=== PATIENT | female | born 1955 | race Caucasian/White ===

== ENCOUNTER 2024-12-12 15:12 | Emergency (ER) | payer OTHER ==
--- OUTSIDE RECORDS SUMMARY | 2024-12-12 15:22 | XMS REPORT | Continuity of Care Document ---
Author Name Unknown Address [address] [facility] [address] [place] [address] [facility] thconnect Address [address] [facility] [address] [place] [address] Care Team Providers Care Lasting Floorworker Name Role Phone Denise Upton MD Primary Care Physician + CAROLA LYNCH Attending Clinician Kate daniels Doctor Unassigned, [place] Attending Clinician U Esthela Villatoro RN Attending Clinician Unavail able RADIOLOGY Attending Clinician Unavailable Radiology Attending Clinician Unavailable Matt Cordova MD Attending Clinician [phone] MATT CORDOVA Attending Clinician Kiarra dorsey Testing, [facility] Pulmonary Function Attending Clinic kandi Unavailable Doctor Unassigned, [place] Attending Clinician U Matt Hi MD Attending Clinician [phone] [facility] Lab Main Attending Clinician Carola David MD Attending Clinician [phone] CAROLA ESQUEDA Attending Clinician Denise Stone MD Attending Clinician [phone] DENISE UPTON Attending Clinician Unavail CARLOS A Anna Attending Clinician CARLOS A Boateng Attending Clinician Renata Warren MD Attending Clinician [phone] Vaccine, [facility] Attending Clinician Unavailable RENATA MANCINI Attending Clinician Kiarra Connelly [facility] Attending Clinician [phone] CHIP MELENDEZ Attending Clinician Unavail able CHIP MELENDEZ Attending Clinician Unavail able Chip Melendez MD Attending Clinician [phone] Lab, Ang - Db Attending Clinician Unavailable Sumit Sotomayor PA-C Attending Clinician [phone] SUMIT SOTOMAYOR Attending Clinician Unavailable Galo KWON, Eugenia Medel Attending Clinician Unavailab le Only, [facility] Pob2 Test Attending Clinician Unavaila Nasir Colbert DO Attending Clinician [phone] NASIR SANTOS Attending Clinician Unavail able JOSHUA MUÑOZ Attending Clinician Unavailabl e Therapist, [facility] Respiratory Attending Clinician U eli Diaz MD, Enmanuel Ardon Attending Clinician [phone] ENMANUEL DIAZ Attending Clinician Unavaila shantel Nurse, [facility] Pob Immunization Attending Clinician Unavailable Joshua Coronel Attending Clinician [phone] Tracey Figueroa MD Attending Clinician [phone], [facility] Lab Attending Clinician Unavailable JORDY MARQUEZ Attending Clinician Unavailable Provider, [facility] Attending Clinician Un available Haleigh Perkins Attending Clinician [phone] Jp Latif MD Attending Clinician Unavailable Carola Lynch MD Attending Clinician + [phone] Only, [facility] Test Attending Clinician Unavailable Sergio Bhagat MD Attending Clinician [phone] SERGIO BHAGAT Attending Clinician Unavailab David Corona MD Attending Clinician [phone] TRACEY FIGUEROA Attending Clinician Unavailable Phil Gan MD Attending Clinician [phone] CAROLA LYNCH Admitting Clinician RENATA Arango Admitting Clinician MATT Albrecht Admitting Clinician Carola Barrera MD Admitting Clinician + [phone] Payers Payer Name Policy Type Policy Number Effective Date Expirati on Date Source MEDICARE PART A \T\ B [id number] 2018 00:00:00 [place] [id number] 2018 00:00:00 Problems Condition Name Condition Details Condition Category Status Onset Date Resolution Date Last Treatment Date Treating Clinician Comments Source Dyslipidem ia Dyslipidem ia Disease Active 01-02 00:00: 00 [facility] Zinc deficiency Zinc deficiency Disease Active 01-02 00:00: 00 [facility] Essential tremor Essential tremor Disease Active 01-02 00:00: 00 [facility] Tachycardi a Tachycardi a Disease Active 12-20 00:00: 00 [facility] Psoriasis Psoriasis Disease Active 12-20 00:00: 00 [facility] Senile osteoporos is Senile osteoporos is Disease Active 12-20 00:00: 00 [facility] Former smoker Former smoker Disease Active 12-20 00:00: 00 [facility] Essential hypertensi on Essential hypertensi on Disease Active 01-07 00:00: 00 [facility] Generalize d anxiety disorder Generalize d anxiety disorder Disease Active 01-07 00:00: 00 [facility] Epigastric pain Epigastric pain Disease Active 01-07 00:00: 00 [facility] Insomnia Insomnia Disease Active 01-07 00:00: 00 [facility] Anorexia Anorexia Disease Active 01-07 00:00: 00 [facility] Chronic midline low back pain with sciatica, sciatica laterality unspecifie d Chronic midline low back pain with sciatica, sciatica laterality unspecifie d Disease Active 01-07 00:00: 00 [facility] Compressio n fracture of lumbar spine, non-trauma tic, sequela Compressio n fracture of lumbar spine, non-trauma tic, sequela Disease Active 01-07 00:00: 00 [facility] Vitamin D deficiency Vitamin D deficiency Disease Active 01-07 00:00: 00 [facility] Peripheral neuropathy Peripheral neuropathy Disease Active 01-07 00:00: 00 [facility] Vitamin deficiency Vitamin deficiency Disease Active 01-07 00:00: 00 [facility] Hyperlipid emia Hyperlipid emia Disease Active 01-07 00:00: 00 [facility] Alcoholism Alcoholism Disease Active 01-07 00:00: 00 [facility] Hypomagnes emia Hypomagnes emia Disease Active 01-07 00:00: 00 [facility] Anemia Anemia Disease Active 11-21 00:00: 00 Overview: Formattin g of this note might be different from the original. 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 Disease Active 8 00:00: 00 [facility] Lung mass Lung mass Disease Active 04-17 00:00: 00 [facility] Medicare annual wellness visit, subsequent Medicare annual wellness visit, subsequent Disease Resolve d 3 00:00: 00 2020-08-22 00:00:00 2020-08-22 17:29:39 [facility] KENNY (acute kidney injury) KENNY (acute kidney injury) Disease Resolve d 2015-10 0-04 00:00: 00 2020-08-22 00:00:00 2020-08-22 17:29:24 [facility] Altered mental state Altered mental state Disease Resolve d 2015-10 0-03 00:00: 00 2020-08-22 00:00:00 2020-08-22 17:29:26 [facility] Acute renal failure Acute renal failure Disease Resolve d 930 00:00: 00 2020-08-22 00:00:00 2020-08-22 17:29:22 [facility] Emesis Emesis Disease Resolve d 715 00:00: 00 2020-08-22 00:00:00 2020-08-22 17:29:32 [facility] Altered mental status Altered mental status Disease Resolve d 7 00:00: 00 2020-08-22 00:00:00 2020-08-22 17:29:27 [facility] Allergies, Adverse Reactions, Alerts Allergy Name Allergy Type Status Severity Reaction(s) Onset Date Inactive Date Treating Clinician Comments Source Zoledron ic Acid-Man nitol-Wa ter Propensi ty to adverse reaction s Active Other - See comments 04-07 00:00: 00 KENNY [facility] ZOLEDRON IC ACID-MAN NITOL-WA TER DRUG Active Other-Cmnt 04-07 00:00: 00 [facility] Dye Propensi ty to adverse reaction s to drug Active Itching 06-24 00:00: 00 MRI dye [facility] Atorvast atin Calcium Propensi ty to adverse reaction s to drug Active Swelling 06-24 00:00: 00 Made mouth blister [facility] ATORVAST ATIN CALCIUM DRUG INGREDI Active High Swelling 06-24 00:00: 00 [facility] DYE DRUG INGREDI Active Med ITCHING 06-24 00:00: 00 [facility] Social History Social Habit Start Date Stop Date Quantity Comments Source History SDOH Alcohol Frequency [facility] History SDOH Alcohol Std Drinks [facility] History SDOH Alcohol Binge [facility] Gender identity [facility] Sexual orientation U [facility] History of Social function 2024-07-06 00:00:00 2024-07-06 00:00:00 [facility] Alcohol intake 2023-07-15 00:00:00 2023-07-15 00:00:00 Current drinker of alcohol (finding) [facility] Alcoholic beverage intake 2023-07-15 00:00:00 2023-07-15 00:00:00 Current drinker of alcohol (finding) [facility] Exposure to SARS-CoV-2 (event) 2022-10-26 00:00:00 2022-11-05 13:10:00 Not sure [facility] Cigarettes smoked current (pack per day) - Reported 2022-07-16 00:00:00 2022-07-16 00:00:00 [facility] Cigarette pack-years 2022-07-16 00:00:00 2022-07-16 00:00:00 [facility] Tobacco use and exposure 2022-07-16 00:00:00 2022-07-16 00:00:00 Smokeless tobacco non-user [facility] Alcohol Comment 2015-06-26 00:00:00 2015-06-26 00:00:00 used to drink daily,has reduced drinking since 03/2014 [facility] History of tobacco use 1969-04-17 00:00:00 2014-04-17 00:00:00 Cigarette Smoker [facility] Sex assigned at 1955 00:00:00 1955 00:00:00 [facility] Smoking Status Start Date Stop Date Source Ex-smoker 2022-07-16 00:00:00 2022-07-16 00:00:00 [facility] Medications Ordered Medication Name Filled Medication Name Start Date Stop Date Current Medication? Ordering Clinician Indication Dosage Frequency Signature (SIG) Comments Components Source doris m-piotrantero L (ANORO ELLIPTA) 62.5-25 mcg/actuati on inhalation disk 18 00:00: 00 Yes [id number] INHALE 1 PUFF BY MOUTH EVERY DAY [facility] albuterol 90 mcg/actuati on inhaler 18 00:00: 00 Yes [id number] 2{puff} Inhale 2 Puffs every 6 (six) hours as needed for Wheezing, Shortness of Breath or Chest tightness. [facility] doris m-piotrantero L (ANORO ELLIPTA) 62.5-25 mcg/actuati on inhalation disk -16 00:00: 00 07-06 00:00 :00 No [id number] INHALE 1 PUFF BY MOUTH EVERY DAY [facility] fluticasone propionate 50 mcg/actuati on nasal spray 7-05 00:00: 00 Yes [id number] USE 2 SPRAYS IN EACH NOSTRIL 2 TIMES DAILY. [facility] doris mendiolaleonorao L (ANORO ELLIPTA) 62.5-25 mcg/actuati on inhalation disk 07-15 00:00: 00 07-04 00:00 :00 No [id number] INHALE 1 PUFF BY MOUTH EVERY DAY [facility] umviv m-piotrantero L (ANORO ELLIPTA) 62.5-25 mcg/actuati on inhalation disk 07-07 00:00: 00 07-15 00:00 :00 No [id number] INHALE 1 PUFF BY MOUTH EVERY DAY [facility] fluticasone propionate 50 mcg/actuati on nasal spray 05-18 00:00: 00 04-22 00:00 :00 No [id number] USE 2 SPRAYS IN EACH NOSTRIL 2 TIMES DAILY. [facility] PREGABALIN 75 mg capsule 04-29 00:00: 00 Yes [id number] TAKE 1 CAPSULE BY MOUTH IN THE MORNING AND IN THE EVENING [facility] ANORO ELLIPTA 62.5-25 mcg/actuati on inhalation disk 02-16 00:00: 00 07-07 00:00 :00 No [id number] INHALE 1 PUFF BY MOUTH EVERY DAY [facility] CLOBETASOL 0.05 % external solution 2-15 00:00: 00 Yes [id number] APPLY TO AFFECTED AREA TWICE A DAY [facility] ibuprofen 200 mg tablet 18 13:13: 14 Yes 200mg Take 200 mg by mouth every 6 (six) hours as needed. [facility] metaxalone 800 mg tablet 18 00:00: 00 Yes [id number] TAKE ONE TABLET BY MOUTH EVERY NIGHT AT BEDTIME NEEDED FOR MUSCLE SPASMS [facility] eszopiclone 3 mg tablet 18 00:00: 00 Yes [id number] TAKE ONE TABLET BY MOUTH EVERY NIGHT AT BEDTIME FOR INSOMNIA [facility] amLODIPine- benazepriL 5-10 mg per capsule 18 00:00: 00 Yes [id number] 2{capsu le} Take 2 capsules by mouth in the morning. [facility] propranoloL 20 mg tablet 11-05 00:00: 00 Yes [id number] 20mg Take 1 tablet by mouth in the morning and 1 tablet at noon and 1 tablet in the evening. [facility] pregabalin 75 mg capsule 11-05 00:00: 00 04-29 00:00 :00 No [id number] 75mg Take 1 capsule by mouth in the morning and 1 capsule in the evening. [facility] clobetasoL 0.05 % external solution 11-05 00:00: 00 12-03 00:00 :00 No [id number] Apply to area(s) 2 (two) times daily. [facility] fluticasone propionate 50 mcg/actuati on nasal spray 2021-10 00:00: 00 11-05 00:00 :00 No [id number] 2{spray } Use 2 Sprays in each nostril in the morning and 2 Sprays in the evening. [facility] ketoconazol e 2 % shampoo 2021-10 0-30 00:00: 00 Yes WASH 3-4 TIMES WEEKLY. LEAVE IN FOR 5-10 MINUTES BEFORE RINSING. [facility] metaxalone 800 mg tablet 2021-10 0-27 00:00: 00 11-05 00:00 :00 No [id number] TAKE ONE TABLET BY MOUTH EVERY NIGHT AT BEDTIME NEEDED FOR MUSCLE SPASMS [facility] clifflialexis dobson-suma L (ANORO ELLIPTA) 62.5-25 mcg/actuati on inhalation disk 2021-10 0-06 00:00: 00 02-16 00:00 :00 No [id number] INHALE 1 PUFF BY MOUTH EVERY DAY [facility] eszopiclone 3 mg tablet 9-29 00:00: 00 11-05 00:00 :00 No [id number] TAKE ONE TABLET BY MOUTH EVERY NIGHT AT BEDTIME FOR INSOMNIA [facility] fluticasone propionate 50 mcg/actuati on nasal spray 07-17 00:00: 00 09-02 00:00 :00 No [id number] USE 2 SPRAYS IN EACH NOSTRIL 2 TIMES DAILY. [facility] fluticasone propionate 50 mcg/actuati on nasal spray 16 00:00: 00 07-17 00:00 :00 No [id number] USE 2 SPRAYS IN EACH NOSTRIL 2 TIMES DAILY. [facility] umeclijaelynu bronson-piotrsophiao L (ANORO ELLIPTA) 62.5-25 mcg/actuati on inhalation disk 06-26 00:00: 00 07-24 00:00 :00 No [id number] TAKE 1 PUFF BY MOUTH EVERY DAY [facility] fluticasone propionate 50 mcg/actuati on nasal spray 05-14 00:00: 00 07-04 00:00 :00 No [id number] USE 2 SPRAYS IN EACH NOSTRIL 2 TIMES DAILY. [facility] ibuprofen (IBUPROFEN IB) 200 mg tablet 04-07 16:56: 06 Yes 200mg Take 200 mg by mouth every 6 (six) hours as needed. [facility] amLODIPine- benazepriL 5-10 mg per capsule 04-07 00:00: 00 11-05 00:00 :00 No [id number] 2{capsu le} Take 2 capsules by mouth daily. [facility] betamethaso ne dipropionat e 0.05 % cream 03-04 00:00: 00 Yes [id number] APPLY TO AFFECTED AREA 1 TO 2 TIMES DAILY NEEDED FOR ALLERGIC REACTION/R HARSHAD [facility] cetirizine 10 mg tablet 03-04 00:00: 00 Yes [id number] 10mg Take 1 tablet by mouth daily. [facility] lidocaine 5 % (700 mg/patch) patch 03-04 00:00: 00 Yes [id number] APPLY 2 PATCHES TO AFFECTED AREA FOR 12 HOURS THEN REMOVE FOR 12 HOURS [facility] FLUTICASONE PROPIONATE 50 mcg/actuati on nasal spray 03-04 00:00: 00 05-14 00:00 :00 No [id number] USE 2 SPRAYS IN EACH NOSTRIL 2 TIMES DAILY. [facility] eszopiclone 3 mg tablet 01-14 00:00: 00 07-17 00:00 :00 No [id number] TAKE ONE TABLET BY MOUTH EVERY NIGHT AT BEDTIME NEEDED FOR INSOMNIA [facility] PROPRANOLOL 20 mg tablet - 00:00: 00 11-05 00:00 :00 No [id number] TAKE 1 TABLET BY MOUTH THREE TIMES A DAY [facility] umeclijaelynu bronson-leonorao L (ANORO ELLIPTA) 62.5-25 mcg/actuati on inhalation disk 07-17 00:00: 00 06-26 00:00 :00 No [id number] 1{puff} Inhale 1 Puff daily. [facility] 07-05 00:00: 00 Yes [id number] Antipyrine -benzocain e 5.4%-1.4% otic drops. Dispense 30ml at a time with 11 refills. [facility] 07-05 00:00: 00 Yes [id number] Antipyrine -benzocain e 5.4%-1.4% otic drops. Dispense 30ml at a time with 11 refills. [facility] pregabalin 75 mg capsule 07-05 00:00: 00 11-05 00:00 :00 No [id number] 75mg Take 1 capsule by mouth 2 (two) times daily. [facility] metaxalone 800 mg tablet 07-05 00:00: 00 08-14 00:00 :00 No [id number] TAKE ONE TABLET BY MOUTH AT BEDTIME NEEDED FOR MUSCLE SPASMS [facility] amLODIPine- benazepriL 5-10 mg per capsule 07-05 00:00: 00 04-07 00:00 :00 No [id number] 2{capsu le} Take 2 capsules by mouth daily. [facility] ALBUTEROL 90 mcg/actuati on inhaler 05-08 00:00: 00 07-06 00:00 :00 No [id number] 2{puff} INHALE 2 PUFFS EVERY 6 (SIX) HOURS NEEDED FOR WHEEZING, SHORTNESS OF BREATH OR CHEST TIGHTNESS. [facility] meclizine 25 mg tablet 05-21 00:00: 00 Yes 25mg Take 1 tablet by mouth 3 (three) times daily as needed (as needed for dizziness) . [facility] clobetasoL 0.05 % external solution 03-29 00:00: 00 11-05 00:00 :00 No [id number] Apply to area(s) 2 (two) times daily. [facility] megestrol 400 mg/10 mL (40 mg/mL) suspension 2017-10 00:00: 00 04-07 00:00 :00 No [id number] TAKE BY MOUTH 2 TEASPOONFU LS DAILY [facility] pantoprazol e (PROTONIX) 40 mg EC tablet 2014-10 00:00: 00 11-18 00:00 :00 No [id number] 40mg Take 1 Tab by mouth daily. [facility] megestrol (MEGACE) 400 mg/10 mL (40 mg/mL) suspension 2014-10 00:00: 00 01-06 00:00 :00 No [id number] 400mg Take 10 mL by mouth daily. [facility] eszopiclone (LUNESTA) 2 mg tablet 2014-10 00:00: 00 09-05 00:00 :00 No [id number] 2mg Take 1 Tab by mouth at bedtime. [facility] amlodipine- benazepril (LOTREL) 5-10 mg per capsule 2014-10 00:00: 00 01-06 00:00 :00 No [id number] 1{capsu le} Take 1 Cap by mouth daily. [facility] lidocaine (LIDODERM) 5 % (700 mg/patch) patch 2014-10 0 00:00: 00 01-06 00:00 :00 No [id number] 1{patch } Apply 1 Patch to area(s) daily. [facility] propranolol (INDERAL) 20 mg tablet 2014-10 00:00: 00 01-06 00:00 :00 No [facility] proMETHazin e (PHENERGAN) 12.5 mg tablet 2014-10 00:00: 00 03-05 00:00 :00 No 12.5mg Take 1 Tab by mouth every 8 (eight) hours as needed for Nausea and Vomiting (N/V). [facility] ergocalcife rol, vitamin d2, (VITAMIN D2) 50,000 unit capsule 06-26 00:00: 00 01-06 00:00 :00 No [id number] 16505H Take 1 Cap by mouth weekly. [facility] multivitami n tablet 06-18 00:00: 00 08-25 00:00 :00 No 1{tbl} Take 1 Tab by mouth daily. [facility] foLIC acid (FOLATE) 1 mg tablet 06-18 00:00: 00 01-06 00:00 :00 No 1mg Take 1 Tab by mouth daily. [facility] thiamine (VITAMIN B1) 100 mg tablet 06-18 00:00: 00 01-06 00:00 :00 No 100mg Take 1 Tab by mouth daily. [facility] SERTraline (ZOLOFT) 50 mg tablet 06-18 00:00: 00 01-06 00:00 :00 No 50mg Take 1 Tab by mouth daily. [facility] gabapentin (GRALISE) 300 mg Tb24 05-16 00:00: 00 01-06 00:00 :00 No [id number] 300mg Take 300 mg by mouth 3 (three) times daily. [facility] formoterol (FORADIL) 12 mcg capsule for inhaler 2013-10 00:00: 00 08-25 00:00 :00 No 12ug Inhale 1 Cap 2 (two) times daily. [facility] magnesium oxide (MAG-OX 400) 400 mg tablet 05-07 00:00: 00 01-06 00:00 :00 No 400mg Take 1 Tab by mouth daily. [facility] Immunizations Ordered Immunization Name Filled Immunization Name Date Status Comments Source Pneumococcal 20 Conjugate, PCV20 (Prevnar 20) 2024-07-06 00:00:00 Completed [facility] SARS-COV-2 COVID-19 LENORE-SUCROSE VACCINE 12 YRS+, BIVALENT 0.3ML, IM, (PFIZER BALTAZAR TOP BOOSTER) 2022-07-11 00:00:00 Completed [facility] SARS-COV-2 COVID-19 LENORE-SUCROSE VACCINE 12 YRS+, BIVALENT 0.3ML, IM, (PFIZER BALTAZAR TOP BOOSTER) 2022-07-11 00:00:00 Completed [facility] SARS-COV-2 COVID-19 LENORE-SUCROSE VACCINE 12 YRS+, BIVALENT 0.3ML, IM, (PFIZER BALTAZAR TOP BOOSTER) 2022-07-11 00:00:00 Completed [facility] SARS-COV-2 COVID-19 LENORE-SUCROSE VACCINE 12 YRS+, BIVALENT 0.3ML, IM, (PFIZER BALTAZAR TOP BOOSTER) 2022-07-11 00:00:00 Completed [facility] SARS-COV-2 COVID-19 LENORE-SUCROSE VACCINE 12 YRS+, BIVALENT 0.3ML, IM, (PFIZER BALTAZAR TOP BOOSTER) 2022-07-11 00:00:00 Completed [facility] SARS-COV-2 COVID-19 LENORE-SUCROSE VACCINE 12 YRS+, BIVALENT 0.3ML, IM, (PFIZER BALTAZAR TOP BOOSTER) 2022-07-11 00:00:00 Completed [facility] SARS-COV-2 COVID-19 LENORE-SUCROSE VACCINE 12 YRS+, BIVALENT 0.3ML, IM, (PFIZER BALTAZAR TOP BOOSTER) 2022-07-11 00:00:00 Completed [facility] SARS-COV-2 COVID-19 LENORE-SUCROSE VACCINE 12 YRS+, BIVALENT 0.3ML, IM, (PFIZER BALTAZAR TOP BOOSTER) 2022-07-11 00:00:00 Completed [facility] SARS-COV-2 COVID-19 LENORE-SUCROSE VACCINE 12 YRS+, BIVALENT 0.3ML, IM, (PFIZER [facility] BOOSTER) 2022-07-11 00:00:00 Completed [facility] SARS-COV-2 COVID-19 LENORE-SUCROSE VACCINE 12 YRS+, BIVALENT 0.3ML, IM, ([facility] BOOSTER) 2022-07-11 00:00:00 Completed [facility] SARS-COV-2 COVID-19 LENORE-SUCROSE VACCINE 12 YRS+, BIVALENT 0.3ML, IM, ([facility]) 2022-07-11 00:00:00 Completed [facility] SARS-COV-2 COVID-19 LENORE-SUCROSE VACCINE 12 YRS+, BIVALENT 0.3ML, IM, ([facility]) 2022-07-11 00:00:00 Completed [facility] SARS-COV-2 COVID-19 LENORE-SUCROSE VACCINE 12 YRS+, BIVALENT 0.3ML, IM, ([facility]) 2022-07-11 00:00:00 Completed [facility] SARS-COV-2 COVID-19 LENORE-SUCROSE VACCINE 12 YRS+, BIVALENT 0.3ML, IM, ([facility]) 2022-07-11 00:00:00 Completed [facility] SARS-COV-2 COVID-19 LENORE-SUCROSE VACCINE 12 YRS+, BIVALENT 0.3ML, IM, ([facility]) 2022-07-11 00:00:00 Completed [facility] SARS-COV-2 COVID-19 LENORE-SUCROSE VACCINE 12 YRS+, BIVALENT 0.3ML, IM, ([facility]) 2022-07-11 00:00:00 Completed [facility] SARS-COV-2 COVID-19 LENORE-SUCROSE VACCINE 12 YRS+, BIVALENT 0.3ML, IM, ([facility]) 2022-07-11 00:00:00 Completed [facility] SARS-COV-2 COVID-19 LENORE-SUCROSE VACCINE 12 YRS+, BIVALENT 0.3ML, IM, ([facility]) 2022-07-11 00:00:00 Completed [facility] SARS-COV-2 COVID-19 LENORE-SUCROSE VACCINE 12 YRS+, BIVALENT 0.3ML, IM, (PFIZER BALTAZAR TOP) 2022-07-11 00:00:00 Completed [facility] SARS-COV-2 COVID-19 PFIZER LENORE-SUCROSE VACCINE (BALTAZAR TOP) 2022-01-15 00:00:00 Completed [facility] SARS-COV-2 COVID-19 PFIZER LENORE-SUCROSE VACCINE (BALTAZAR TOP) 2022-01-15 00:00:00 Completed [facility] SARS-COV-2 COVID-19 PFIZER LENORE-SUCROSE VACCINE (BALTAZAR TOP) 2022-01-15 00:00:00 Completed [facility] SARS-COV-2 COVID-19 PFIZER LENORE-SUCROSE VACCINE (BALTAZAR TOP) 2022-01-15 00:00:00 Completed [facility] SARS-COV-2 COVID-19 PFIZER LENORE-SUCROSE VACCINE (BALTAZAR TOP) 2022-01-15 00:00:00 Completed [facility] SARS-COV-2 COVID-19 PFIZER LENORE-SUCROSE VACCINE (BALTAZAR TOP) 2022-01-15 00:00:00 Completed [facility] SARS-COV-2 COVID-19 PFIZER LENORE-SUCROSE VACCINE (BALTAZAR TOP) 2022-01-15 00:00:00 Completed [facility] SARS-COV-2 COVID-19 PFIZER LENORE-SUCROSE VACCINE (BALTAZAR TOP) 2022-01-15 00:00:00 Completed [facility] SARS-COV-2 COVID-19 PFIZER LENORE-SUCROSE VACCINE (BALTAZAR TOP) 2022-01-15 00:00:00 Completed [facility] SARS-COV-2 COVID-19 PFIZER LENORE-SUCROSE VACCINE (BALTAZAR TOP) 2022-01-15 00:00:00 Completed [facility] SARS-COV-2 COVID-19 PFIZER LENORE-SUCROSE VACCINE (BALTAZAR TOP) 2022-01-15 00:00:00 Completed [facility] SARS-COV-2 COVID-19 PFIZER LENORE-SUCROSE VACCINE (BALTAZAR TOP) 2022-01-15 00:00:00 Completed [facility] SARS-COV-2 COVID-19 PFIZER LENORE-SUCROSE VACCINE (BALTAZAR TOP) 2022-01-15 00:00:00 Completed [facility] SARS-COV-2 COVID-19 PFIZER LENORE-SUCROSE VACCINE (BALTAZAR TOP) 2022-01-15 00:00:00 Completed [facility] SARS-COV-2 COVID-19 PFIZER LENORE-SUCROSE VACCINE (BALTAZAR TOP) 2022-01-15 00:00:00 Completed [facility] SARS-COV-2 COVID-19 PFIZER LENORE-SUCROSE VACCINE (BALTAZAR TOP) 2022-01-15 00:00:00 Completed [facility] SARS-COV-2 COVID-19 PFIZER LENORE-SUCROSE VACCINE (BALTAZAR TOP) 2022-01-15 00:00:00 Completed [facility] SARS-COV-2 COVID-19 PFIZER LENORE-SUCROSE VACCINE (BALTAZAR TOP) 2022-01-15 00:00:00 Completed [facility] SARS-COV-2 COVID-19 PFIZER LENORE-SUCROSE VACCINE (BALTAZAR TOP) 2022-01-15 00:00:00 Completed [facility] SARS-COV-2 COVID-19 PFIZER LENORE-SUCROSE VACCINE (BALTAZAR TOP) 2022-01-15 00:00:00 Completed [facility] SARS-COV-2 COVID-19 PFIZER LENORE-SUCROSE VACCINE (BALTAZAR TOP) 2022-01-15 00:00:00 Completed [facility] SARS-COV-2 COVID-19 PFIZER LENORE-SUCROSE VACCINE (BALTAZAR TOP) 2022-01-15 00:00:00 Completed [facility] SARS-COV-2 COVID-19 PFIZER LENORE-SUCROSE VACCINE (BALTAZAR TOP) 2022-01-15 00:00:00 Completed [facility] SARS-COV-2 COVID-19 PFIZER LENORE-SUCROSE VACCINE (BALTAZAR TOP) 2022-01-15 00:00:00 Completed [facility] SARS-COV-2 COVID-19 PFIZER LENORE-SUCROSE VACCINE (BALTAZAR TOP) 2022-01-15 00:00:00 Completed [facility] SARS-COV-2 COVID-19 PFIZER VACCINE 2021-07-05 00:00:00 Completed [facility] SARS-COV-2 COVID-19 PFIZER VACCINE 2021-07-05 00:00:00 Completed [facility] SARS-COV-2 COVID-19 PFIZER VACCINE 2021-07-05 00:00:00 Completed [facility] SARS-COV-2 COVID-19 PFIZER VACCINE 2021-07-05 00:00:00 Completed [facility] SARS-COV-2 COVID-19 PFIZER VACCINE 2021-07-05 00:00:00 Completed [facility] SARS-COV-2 COVID-19 PFIZER VACCINE 2021-07-05 00:00:00 Completed [facility] SARS-COV-2 COVID-19 PFIZER VACCINE 2021-07-05 00:00:00 Completed [facility] SARS-COV-2 COVID-19 PFIZER VACCINE 2021-07-05 00:00:00 Completed [facility] SARS-COV-2 COVID-19 PFIZER VACCINE 2021-07-05 00:00:00 Completed [facility] SARS-COV-2 COVID-19 PFIZER VACCINE 2021-07-05 00:00:00 Completed [facility] SARS-COV-2 COVID-19 PFIZER VACCINE 2021-07-05 00:00:00 Completed [facility] SARS-COV-2 COVID-19 PFIZER VACCINE 2021-07-05 00:00:00 Completed [facility] SARS-COV-2 COVID-19 PFIZER VACCINE 2021-07-05 00:00:00 Completed [facility] SARS-COV-2 COVID-19 PFIZER VACCINE 2021-07-05 00:00:00 Completed [facility] SARS-COV-2 COVID-19 PFIZER VACCINE 2021-07-05 00:00:00 Completed [facility] SARS-COV-2 COVID-19 PFIZER VACCINE 2021-07-05 00:00:00 Completed [facility] SARS-COV-2 COVID-19 PFIZER VACCINE 2021-07-05 00:00:00 Completed [facility] SARS-COV-2 COVID-19 PFIZER VACCINE 2021-07-05 00:00:00 Completed [facility] SARS-COV-2 COVID-19 PFIZER VACCINE 2021-07-05 00:00:00 Completed [facility] SARS-COV-2 COVID-19 PFIZER VACCINE 2021-07-05 00:00:00 Completed [facility] SARS-COV-2 COVID-19 PFIZER VACCINE 2021-07-05 00:00:00 Completed [facility] SARS-COV-2 COVID-19 PFIZER VACCINE 2021-07-05 00:00:00 Completed [facility] SARS-COV-2 COVID-19 PFIZER VACCINE 2021-07-05 00:00:00 Completed [facility] SARS-COV-2 COVID-19 PFIZER VACCINE 2021-07-05 00:00:00 Completed [facility] SARS-COV-2 COVID-19 PFIZER VACCINE 2021-07-05 00:00:00 Completed [facility] SARS-COV-2 COVID-19 PFIZER VACCINE 2020-12-13 00:00:00 Completed [facility] SARS-COV-2 COVID-19 PFIZER VACCINE 2020-12-13 00:00:00 Completed [facility] SARS-COV-2 COVID-19 PFIZER VACCINE 2020-12-13 00:00:00 Completed [facility] SARS-COV-2 COVID-19 PFIZER VACCINE 2020-12-13 00:00:00 Completed [facility] SARS-COV-2 COVID-19 PFIZER VACCINE 2020-12-13 00:00:00 Completed [facility] SARS-COV-2 COVID-19 PFIZER VACCINE 2020-12-13 00:00:00 Completed [facility] SARS-COV-2 COVID-19 PFIZER VACCINE 2020-12-13 00:00:00 Completed [facility] SARS-COV-2 COVID-19 PFIZER VACCINE 2020-12-13 00:00:00 Completed [facility] SARS-COV-2 COVID-19 PFIZER VACCINE 2020-12-13 00:00:00 Completed [facility] SARS-COV-2 COVID-19 PFIZER VACCINE 2020-12-13 00:00:00 Completed [facility] SARS-COV-2 COVID-19 PFIZER VACCINE 2020-12-13 00:00:00 Completed [facility] SARS-COV-2 COVID-19 PFIZER VACCINE 2020-12-13 00:00:00 Completed [facility] SARS-COV-2 COVID-19 PFIZER VACCINE 2020-12-13 00:00:00 Completed [facility] SARS-COV-2 COVID-19 PFIZER VACCINE 2020-12-13 00:00:00 Completed [facility] SARS-COV-2 COVID-19 PFIZER VACCINE 2020-12-13 00:00:00 Completed [facility] SARS-COV-2 COVID-19 PFIZER VACCINE 2020-12-13 00:00:00 Completed [facility] SARS-COV-2 COVID-19 PFIZER VACCINE 2020-12-13 00:00:00 Completed [facility] SARS-COV-2 COVID-19 PFIZER VACCINE 2020-12-13 00:00:00 Completed [facility] SARS-COV-2 COVID-19 PFIZER VACCINE 2020-12-13 00:00:00 Completed [facility] SARS-COV-2 COVID-19 PFIZER VACCINE 2020-12-13 00:00:00 Completed [facility] SARS-COV-2 COVID-19 PFIZER VACCINE 2020-12-13 00:00:00 Completed [facility] SARS-COV-2 COVID-19 PFIZER VACCINE 2020-12-13 00:00:00 Completed [facility] SARS-COV-2 COVID-19 PFIZER VACCINE 2020-12-13 00:00:00 Completed [facility] SARS-COV-2 COVID-19 PFIZER VACCINE 2020-12-13 00:00:00 Completed [facility] SARS-COV-2 COVID-19 PFIZER VACCINE 2020-12-13 00:00:00 Completed [facility] SARS-COV-2 COVID-19 PFIZER VACCINE 2020-11-13 00:00:00 Completed [facility] SARS-COV-2 COVID-19 PFIZER VACCINE 2020-11-13 00:00:00 Completed [facility] SARS-COV-2 COVID-19 PFIZER VACCINE 2020-11-13 00:00:00 Completed [facility] SARS-COV-2 COVID-19 PFIZER VACCINE 2020-11-13 00:00:00 Completed [facility] SARS-COV-2 COVID-19 PFIZER VACCINE 2020-11-13 00:00:00 Completed [facility] SARS-COV-2 COVID-19 PFIZER VACCINE 2020-11-13 00:00:00 Completed [facility] SARS-COV-2 COVID-19 PFIZER VACCINE 2020-11-13 00:00:00 Completed [facility] SARS-COV-2 COVID-19 PFIZER VACCINE 2020-11-13 00:00:00 Completed [facility] SARS-COV-2 COVID-19 PFIZER VACCINE 2020-11-13 00:00:00 Completed [facility] SARS-COV-2 COVID-19 PFIZER VACCINE 2020-11-13 00:00:00 Completed [facility] SARS-COV-2 COVID-19 PFIZER VACCINE 2020-11-13 00:00:00 Completed [facility] SARS-COV-2 COVID-19 PFIZER VACCINE 2020-11-13 00:00:00 Completed [facility] SARS-COV-2 COVID-19 PFIZER VACCINE 2020-11-13 00:00:00 Completed [facility] SARS-COV-2 COVID-19 PFIZER VACCINE 2020-11-13 00:00:00 Completed [facility] SARS-COV-2 COVID-19 PFIZER VACCINE 2020-11-13 00:00:00 Completed [facility] SARS-COV-2 COVID-19 PFIZER VACCINE 2020-11-13 00:00:00 Completed [facility] SARS-COV-2 COVID-19 PFIZER VACCINE 2020-11-13 00:00:00 Completed [facility] SARS-COV-2 COVID-19 PFIZER VACCINE 2020-11-13 00:00:00 Completed [facility] SARS-COV-2 COVID-19 PFIZER VACCINE 2020-11-13 00:00:00 Completed [facility] SARS-COV-2 COVID-19 PFIZER VACCINE 2020-11-13 00:00:00 Completed [facility] SARS-COV-2 COVID-19 PFIZER VACCINE 2020-11-13 00:00:00 Completed [facility] SARS-COV-2 COVID-19 PFIZER VACCINE 2020-11-13 00:00:00 Completed [facility] SARS-COV-2 COVID-19 PFIZER VACCINE 2020-11-13 00:00:00 Completed [facility] SARS-COV-2 COVID-19 PFIZER VACCINE 2020-11-13 00:00:00 Completed [facility] SARS-COV-2 COVID-19 PFIZER VACCINE 2020-11-13 00:00:00 Completed [facility] Influenza High Dose 2020-06-27 00:00:00 Completed [facility] Influenza High Dose 2020-06-27 00:00:00 Completed [facility] Influenza High Dose 2020-06-27 00:00:00 Completed [facility] Influenza High Dose 2020-06-27 00:00:00 Completed [facility] Influenza High Dose 2020-06-27 00:00:00 Completed [facility] Influenza High Dose 2020-06-27 00:00:00 Completed [facility] Influenza High Dose 2020-06-27 00:00:00 Completed [facility] Influenza High Dose 2020-06-27 00:00:00 Completed [facility] Influenza High Dose 2020-06-27 00:00:00 Completed [facility] Influenza High Dose 2020-06-27 00:00:00 Completed [facility] Influenza High Dose 2020-06-27 00:00:00 Completed [facility] Influenza High Dose 2020-06-27 00:00:00 Completed [facility] Influenza High Dose 2020-06-27 00:00:00 Completed [facility] Influenza High Dose 2020-06-27 00:00:00 Completed [facility] Influenza High Dose 2020-06-27 00:00:00 Completed [facility] Influenza High Dose 2020-06-27 00:00:00 Completed [facility] Influenza High Dose 2020-06-27 00:00:00 Completed [facility] Influenza High Dose 2020-06-27 00:00:00 Completed [facility] Influenza High Dose 2020-06-27 00:00:00 Completed [facility] Influenza High Dose 2020-06-27 00:00:00 Completed [facility] Influenza High Dose 2020-06-27 00:00:00 Completed [facility] Influenza High Dose 2020-06-27 00:00:00 Completed [facility] Influenza High Dose 2020-06-27 00:00:00 Completed [facility] Influenza High Dose 2020-06-27 00:00:00 Completed [facility] Influenza, High-Dose, Trivalent, PF (FLUZONE) 2020-06-27 00:00:00 Completed Influenza High Dose 2019-08-11 00:00:00 Completed [facility] Influenza High Dose 2019-08-11 00:00:00 Completed [facility] Influenza High Dose 2019-08-11 00:00:00 Completed [facility] Influenza High Dose 2019-08-11 00:00:00 Completed [facility] Influenza High Dose 2019-08-11 00:00:00 Completed [facility] Influenza High Dose 2019-08-11 00:00:00 Completed [facility] Influenza High Dose 2019-08-11 00:00:00 Completed [facility] Influenza High Dose 2019-08-11 00:00:00 Completed [facility] Influenza High Dose 2019-08-11 00:00:00 Completed [facility] Influenza High Dose 2019-08-11 00:00:00 Completed [facility] Influenza High Dose 2019-08-11 00:00:00 Completed [facility] Influenza High Dose 2019-08-11 00:00:00 Completed [facility] Influenza High Dose 2019-08-11 00:00:00 Completed [facility] Influenza High Dose 2019-08-11 00:00:00 Completed [facility] Influenza High Dose 2019-08-11 00:00:00 Completed [facility] Influenza High Dose 2019-08-11 00:00:00 Completed [facility] Influenza High Dose 2019-08-11 00:00:00 Completed [facility] Influenza High Dose 2019-08-11 00:00:00 Completed [facility] Influenza High Dose 2019-08-11 00:00:00 Completed [facility] Influenza High Dose 2019-08-11 00:00:00 Completed [facility] Influenza High Dose 2019-08-11 00:00:00 Completed [facility] Influenza High Dose 2019-08-11 00:00:00 Completed [facility] Influenza High Dose 2019-08-11 00:00:00 Completed [facility] Influenza High Dose 2019-08-11 00:00:00 Completed [facility] Influenza, High-Dose, Trivalent, PF (FLUZONE) 2019-08-11 00:00:00 Completed [facility] Pneumococcal Polysaccharide, PPSV23 (PNEUMOVAX) 2019-06-22 00:00:00 Completed [facility] Pneumococcal Polysaccharide, PPSV23 (PNEUMOVAX) 2019-06-22 00:00:00 Completed [facility] Pneumococcal Polysaccharide, PPSV23 (PNEUMOVAX) 2019-06-22 00:00:00 Completed [facility] Pneumococcal Polysaccharide, PPSV23 (PNEUMOVAX) 2019-06-22 00:00:00 Completed [facility] Pneumococcal Polysaccharide, PPSV23 (PNEUMOVAX) 2019-06-22 00:00:00 Completed [facility] Pneumococcal Polysaccharide, PPSV23 (PNEUMOVAX) 2019-06-22 00:00:00 Completed [facility] Pneumococcal Polysaccharide, PPSV23 (PNEUMOVAX) 2019-06-22 00:00:00 Completed [facility] Pneumococcal Polysaccharide, PPSV23 (PNEUMOVAX) 2019-06-22 00:00:00 Completed [facility] Pneumococcal Polysaccharide, PPSV23 (PNEUMOVAX) 2019-06-22 00:00:00 Completed [facility] Pneumococcal Polysaccharide, PPSV23 (PNEUMOVAX) 2019-06-22 00:00:00 Completed [facility] Pneumococcal Polysaccharide, PPSV23 (PNEUMOVAX) 2019-06-22 00:00:00 Completed [facility] Pneumococcal Polysaccharide, PPSV23 (PNEUMOVAX) 2019-06-22 00:00:00 Completed [facility] Pneumococcal Polysaccharide, PPSV23 (PNEUMOVAX) 2019-06-22 00:00:00 Completed [facility] Pneumococcal Polysaccharide, PPSV23 (PNEUMOVAX) 2019-06-22 00:00:00 Completed [facility] Pneumococcal Polysaccharide, PPSV23 (PNEUMOVAX) 2019-06-22 00:00:00 Completed [facility] Pneumococcal Polysaccharide, PPSV23 (PNEUMOVAX) 2019-06-22 00:00:00 Completed [facility] Pneumococcal Polysaccharide, PPSV23 (PNEUMOVAX) 2019-06-22 00:00:00 Completed [facility] Pneumococcal Polysaccharide, PPSV23 (PNEUMOVAX) 2019-06-22 00:00:00 Completed [facility] Pneumococcal Polysaccharide, PPSV23 (PNEUMOVAX) 2019-06-22 00:00:00 Completed [facility] Pneumococcal Polysaccharide, PPSV23 (PNEUMOVAX) 2019-06-22 00:00:00 Completed [facility] Pneumococcal Polysaccharide, PPSV23 (PNEUMOVAX) 2019-06-22 00:00:00 Completed [facility] Pneumococcal Polysaccharide, PPSV23 (PNEUMOVAX) 2019-06-22 00:00:00 Completed [facility] Pneumococcal Polysaccharide, PPSV23 (PNEUMOVAX) 2019-06-22 00:00:00 Completed [facility] Pneumococcal Polysaccharide, PPSV23 (PNEUMOVAX) 2019-06-22 00:00:00 Completed [facility] Pneumococcal Polysaccharide, PPSV23 (PNEUMOVAX) 2019-06-22 00:00:00 Completed Influenza High Dose 2018-09-06 00:00:00 Completed [facility] Influenza High Dose 2018-09-06 00:00:00 Completed [facility] Influenza High Dose 2018-09-06 00:00:00 Completed [facility] Influenza High Dose 2018-09-06 00:00:00 Completed [facility] Influenza High Dose 2018-09-06 00:00:00 Completed [facility] Influenza High Dose 2018-09-06 00:00:00 Completed [facility] Influenza High Dose 2018-09-06 00:00:00 Completed [facility] Influenza High Dose 2018-09-06 00:00:00 Completed [facility] Influenza High Dose 2018-09-06 00:00:00 Completed [facility] Influenza High Dose 2018-09-06 00:00:00 Completed [facility] Influenza High Dose 2018-09-06 00:00:00 Completed [facility] Influenza High Dose 2018-09-06 00:00:00 Completed [facility] Influenza High Dose 2018-09-06 00:00:00 Completed [facility] Influenza High Dose 2018-09-06 00:00:00 Completed [facility] Influenza High Dose 2018-09-06 00:00:00 Completed [facility] Influenza High Dose 2018-09-06 00:00:00 Completed [facility] Influenza High Dose 2018-09-06 00:00:00 Completed [facility] Influenza High Dose 2018-09-06 00:00:00 Completed [facility] Influenza High Dose 2018-09-06 00:00:00 Completed [facility] Influenza High Dose 2018-09-06 00:00:00 Completed [facility] Influenza High Dose 2018-09-06 00:00:00 Completed [facility] Influenza High Dose 2018-09-06 00:00:00 Completed [facility] Influenza High Dose 2018-09-06 00:00:00 Completed [facility] Influenza High Dose 2018-09-06 00:00:00 Completed [facility] Influenza, High-Dose, Trivalent, PF (FLUZONE) 2018-09-06 00:00:00 Completed [facility] Pneumococcal 13 Conjugate, PCV13 (Prevnar 13) 2018-06-16 00:00:00 Completed [facility] Pneumococcal 13 Conjugate, PCV13 (Prevnar 13) 2018-06-16 00:00:00 Completed [facility] Pneumococcal 13 Conjugate, PCV13 (Prevnar 13) 2018-06-16 00:00:00 Completed [facility] Pneumococcal 13 Conjugate, PCV13 (Prevnar 13) 2018-06-16 00:00:00 Completed [facility] Pneumococcal 13 Conjugate, PCV13 (Prevnar 13) 2018-06-16 00:00:00 Completed [facility] Pneumococcal 13 Conjugate, PCV13 (Prevnar 13) 2018-06-16 00:00:00 Completed [facility] Pneumococcal 13 Conjugate, PCV13 (Prevnar 13) 2018-06-16 00:00:00 Completed [facility] Pneumococcal 13 Conjugate, PCV13 (Prevnar 13) 2018-06-16 00:00:00 Completed [facility] Pneumococcal 13 Conjugate, PCV13 (Prevnar 13) 2018-06-16 00:00:00 Completed [facility] Pneumococcal 13 Conjugate, PCV13 (Prevnar 13) 2018-06-16 00:00:00 Completed [facility] Pneumococcal 13 Conjugate, PCV13 (Prevnar 13) 2018-06-16 00:00:00 Completed [facility] Pneumococcal 13 Conjugate, PCV13 (Prevnar 13) 2018-06-16 00:00:00 Completed [facility] Pneumococcal 13 Conjugate, PCV13 (Prevnar 13) 2018-06-16 00:00:00 Completed [facility] Pneumococcal 13 Conjugate, PCV13 (Prevnar 13) 2018-06-16 00:00:00 Completed [facility] Pneumococcal 13 Conjugate, PCV13 (Prevnar 13) 2018-06-16 00:00:00 Completed [facility] Pneumococcal 13 Conjugate, PCV13 (Prevnar 13) 2018-06-16 00:00:00 Completed [facility] Pneumococcal 13 Conjugate, PCV13 (Prevnar 13) 2018-06-16 00:00:00 Completed [facility] Pneumococcal 13 Conjugate, PCV13 (Prevnar 13) 2018-06-16 00:00:00 Completed [facility] Pneumococcal 13 Conjugate, PCV13 (Prevnar 13) 2018-06-16 00:00:00 Completed [facility] Pneumococcal 13 Conjugate, PCV13 (Prevnar 13) 2018-06-16 00:00:00 Completed [facility] Pneumococcal 13 Conjugate, PCV13 (Prevnar 13) 2018-06-16 00:00:00 Completed [facility] Pneumococcal 13 Conjugate, PCV13 (Prevnar 13) 2018-06-16 00:00:00 Completed [facility] Pneumococcal 13 Conjugate, PCV13 (Prevnar 13) 2018-06-16 00:00:00 Completed [facility] Pneumococcal 13 Conjugate, PCV13 (Prevnar 13) 2018-06-16 00:00:00 Completed [facility] Pneumococcal 13 Conjugate, PCV13 (Prevnar 13) 2018-06-16 00:00:00 Completed [facility] Influenza Virus Vaccine Quad ID 18-64 YRS 2017-11-19 00:00:00 Completed [facility] Influenza Virus Vaccine Quad ID 18-64 YRS 2017-11-19 00:00:00 Completed [facility] Influenza Virus Vaccine Quad ID 18-64 YRS 2017-11-19 00:00:00 Completed [facility] Influenza Virus Vaccine Quad ID 18-64 YRS 2017-11-19 00:00:00 Completed [facility] Influenza Virus Vaccine Quad ID 18-64 YRS 2017-11-19 00:00:00 Completed [facility] Influenza Virus Vaccine Quad ID 18-64 YRS 2017-11-19 00:00:00 Completed [facility] Influenza Virus Vaccine Quad ID 18-64 YRS 2017-11-19 00:00:00 Completed [facility] Influenza Virus Vaccine Quad ID 18-64 YRS 2017-11-19 00:00:00 Completed [facility] Influenza Virus Vaccine Quad ID 18-64 YRS 2017-11-19 00:00:00 Completed [facility] Influenza Virus Vaccine Quad ID 18-64 YRS 2017-11-19 00:00:00 Completed [facility] Influenza Virus Vaccine Quad ID 18-64 YRS 2017-11-19 00:00:00 Completed [facility] Influenza Virus Vaccine Quad ID 18-64 YRS 2017-11-19 00:00:00 Completed [facility] Influenza Virus Vaccine Quad ID 18-64 YRS 2017-11-19 00:00:00 Completed [facility] Influenza Virus Vaccine Quad ID 18-64 YRS 2017-11-19 00:00:00 Completed [facility] Influenza Virus Vaccine Quad ID 18-64 YRS 2017-11-19 00:00:00 Completed [facility] Influenza Virus Vaccine Quad ID 18-64 YRS 2017-11-19 00:00:00 Completed [facility] Influenza Virus Vaccine Quad ID 18-64 YRS 2017-11-19 00:00:00 Completed [facility] Influenza Virus Vaccine Quad ID 18-64 YRS 2017-11-19 00:00:00 Completed [facility] Influenza Virus Vaccine Quad ID 18-64 YRS 2017-11-19 00:00:00 Completed [facility] Influenza Virus Vaccine Quad ID 18-64 YRS 2017-11-19 00:00:00 Completed [facility] Influenza Virus Vaccine Quad ID 18-64 YRS 2017-11-19 00:00:00 Completed [facility] Influenza Virus Vaccine Quad ID 18-64 YRS 2017-11-19 00:00:00 Completed [facility] Influenza Virus Vaccine Quad ID 18-64 YRS 2017-11-19 00:00:00 Completed [facility] Influenza Virus Vaccine Quad ID 18-64 YRS 2017-11-19 00:00:00 Completed [facility] Influenza Virus Vaccine Quad ID 18-64 YRS 2017-11-19 00:00:00 Completed [facility] Pneumococcal Polysaccharide, PPSV23 (PNEUMOVAX) 2015-09-04 00:00:00 Completed [facility] Influenza Virus Vaccine Quad IM 3+ YRS 2015-09-04 00:00:00 Completed [facility] Pneumococcal Polysaccharide, PPSV23 (PNEUMOVAX) 2015-09-04 00:00:00 Completed [facility] Influenza Virus Vaccine Quad IM 3+ YRS 2015-09-04 00:00:00 Completed [facility] Pneumococcal Polysaccharide, PPSV23 (PNEUMOVAX) 2015-09-04 00:00:00 Completed [facility] Influenza Virus Vaccine Quad IM 3+ YRS 2015-09-04 00:00:00 Completed [facility] Pneumococcal Polysaccharide, PPSV23 (PNEUMOVAX) 2015-09-04 00:00:00 Completed [facility] Influenza Virus Vaccine Quad IM 3+ YRS 2015-09-04 00:00:00 Completed [facility] Pneumococcal Polysaccharide, PPSV23 (PNEUMOVAX) 2015-09-04 00:00:00 Completed [facility] Influenza Virus Vaccine Quad IM 3+ YRS 2015-09-04 00:00:00 Completed [facility] Pneumococcal Polysaccharide, PPSV23 (PNEUMOVAX) 2015-09-04 00:00:00 Completed [facility] Influenza Virus Vaccine Quad IM 3+ YRS 2015-09-04 00:00:00 Completed [facility] Pneumococcal Polysaccharide, PPSV23 (PNEUMOVAX) 2015-09-04 00:00:00 Completed [facility] Influenza Virus Vaccine Quad IM 3+ YRS 2015-09-04 00:00:00 Completed [facility] Pneumococcal Polysaccharide, PPSV23 (PNEUMOVAX) 2015-09-04 00:00:00 Completed [facility] Influenza Virus Vaccine Quad IM 3+ YRS 2015-09-04 00:00:00 Completed [facility] Pneumococcal Polysaccharide, PPSV23 (PNEUMOVAX) 2015-09-04 00:00:00 Completed [facility] Influenza Virus Vaccine Quad IM 3+ YRS 2015-09-04 00:00:00 Completed [facility] Pneumococcal Polysaccharide, PPSV23 (PNEUMOVAX) 2015-09-04 00:00:00 Completed [facility] Influenza Virus Vaccine Quad IM 3+ YRS 2015-09-04 00:00:00 Completed [facility] Pneumococcal Polysaccharide, PPSV23 (PNEUMOVAX) 2015-09-04 00:00:00 Completed [facility] Influenza Virus Vaccine Quad IM 3+ YRS 2015-09-04 00:00:00 Completed [facility] Pneumococcal Polysaccharide, PPSV23 (PNEUMOVAX) 2015-09-04 00:00:00 Completed [facility] Influenza Virus Vaccine Quad IM 3+ YRS 2015-09-04 00:00:00 Completed [facility] Pneumococcal Polysaccharide, PPSV23 (PNEUMOVAX) 2015-09-04 00:00:00 Completed [facility] Influenza Virus Vaccine Quad IM 3+ YRS 2015-09-04 00:00:00 Completed [facility] Pneumococcal Polysaccharide, PPSV23 (PNEUMOVAX) 2015-09-04 00:00:00 Completed [facility] Influenza Virus Vaccine Quad IM 3+ YRS 2015-09-04 00:00:00 Completed [facility] Pneumococcal Polysaccharide, PPSV23 (PNEUMOVAX) 2015-09-04 00:00:00 Completed [facility] Influenza Virus Vaccine Quad IM 3+ YRS 2015-09-04 00:00:00 Completed [facility] Pneumococcal Polysaccharide, PPSV23 (PNEUMOVAX) 2015-09-04 00:00:00 Completed [facility] Influenza Virus Vaccine Quad IM 3+ YRS 2015-09-04 00:00:00 Completed [facility] Pneumococcal Polysaccharide, PPSV23 (PNEUMOVAX) 2015-09-04 00:00:00 Completed [facility] Influenza Virus Vaccine Quad IM 3+ YRS 2015-09-04 00:00:00 Completed [facility] Pneumococcal Polysaccharide, PPSV23 (PNEUMOVAX) 2015-09-04 00:00:00 Completed [facility] Influenza Virus Vaccine Quad IM 3+ YRS 2015-09-04 00:00:00 Completed [facility] Pneumococcal Polysaccharide, PPSV23 (PNEUMOVAX) 2015-09-04 00:00:00 Completed [facility] Influenza Virus Vaccine Quad IM 3+ YRS 2015-09-04 00:00:00 Completed [facility] Pneumococcal Polysaccharide, PPSV23 (PNEUMOVAX) 2015-09-04 00:00:00 Completed [facility] Influenza Virus Vaccine Quad IM 3+ YRS 2015-09-04 00:00:00 Completed [facility] Pneumococcal Polysaccharide, PPSV23 (PNEUMOVAX) 2015-09-04 00:00:00 Completed [facility] Influenza Virus Vaccine Quad IM 3+ YRS 2015-09-04 00:00:00 Completed [facility] Pneumococcal Polysaccharide, PPSV23 (PNEUMOVAX) 2015-09-04 00:00:00 Completed [facility] Influenza Virus Vaccine Quad IM 3+ YRS 2015-09-04 00:00:00 Completed [facility] Pneumococcal Polysaccharide, PPSV23 (PNEUMOVAX) 2015-09-04 00:00:00 Completed [facility] Influenza Virus Vaccine Quad IM 3+ YRS 2015-09-04 00:00:00 Completed [facility] Pneumococcal Polysaccharide, PPSV23 (PNEUMOVAX) 2015-09-04 00:00:00 Completed [facility] Influenza Virus Vaccine Quad IM 3+ YRS 2015-09-04 00:00:00 Completed [facility] Pneumococcal Polysaccharide, PPSV23 (PNEUMOVAX) 2015-09-04 00:00:00 Completed [facility] Influenza Virus Vaccine Quad IM 3+ YRS 2015-09-04 00:00:00 Completed Influenza Virus Vaccine Quad IM 3+ YRS 2014-09-19 00:00:00 Completed [facility] Influenza Virus Vaccine Quad IM 3+ YRS 2014-09-19 00:00:00 Completed [facility] Influenza Virus Vaccine Quad IM 3+ YRS 2014-09-19 00:00:00 Completed [facility] Influenza Virus Vaccine Quad IM 3+ YRS 2014-09-19 00:00:00 Completed [facility] Influenza Virus Vaccine Quad IM 3+ YRS 2014-09-19 00:00:00 Completed [facility] Influenza Virus Vaccine Quad IM 3+ YRS 2014-09-19 00:00:00 Completed [facility] Influenza Virus Vaccine Quad IM 3+ YRS 2014-09-19 00:00:00 Completed [facility] Influenza Virus Vaccine Quad IM 3+ YRS 2014-09-19 00:00:00 Completed [facility] Influenza Virus Vaccine Quad IM 3+ YRS 2014-09-19 00:00:00 Completed [facility] Influenza Virus Vaccine Quad IM 3+ YRS 2014-09-19 00:00:00 Completed [facility] Influenza Virus Vaccine Quad IM 3+ YRS 2014-09-19 00:00:00 Completed [facility] Influenza Virus Vaccine Quad IM 3+ YRS 2014-09-19 00:00:00 Completed [facility] Influenza Virus Vaccine Quad IM 3+ YRS 2014-09-19 00:00:00 Completed [facility] Influenza Virus Vaccine Quad IM 3+ YRS 2014-09-19 00:00:00 Completed [facility] Influenza Virus Vaccine Quad IM 3+ YRS 2014-09-19 00:00:00 Completed [facility] Influenza Virus Vaccine Quad IM 3+ YRS 2014-09-19 00:00:00 Completed [facility] Influenza Virus Vaccine Quad IM 3+ YRS 2014-09-19 00:00:00 Completed [facility] Influenza Virus Vaccine Quad IM 3+ YRS 2014-09-19 00:00:00 Completed [facility] Influenza Virus Vaccine Quad IM 3+ YRS 2014-09-19 00:00:00 Completed [facility] Influenza Virus Vaccine Quad IM 3+ YRS 2014-09-19 00:00:00 Completed [facility] Influenza Virus Vaccine Quad IM 3+ YRS 2014-09-19 00:00:00 Completed [facility] Influenza Virus Vaccine Quad IM 3+ YRS 2014-09-19 00:00:00 Completed [facility] Influenza Virus Vaccine Quad IM 3+ YRS 2014-09-19 00:00:00 Completed [facility] Influenza Virus Vaccine Quad IM 3+ YRS 2014-09-19 00:00:00 Completed [facility] Influenza Virus Vaccine Quad IM 3+ YRS 2014-09-19 00:00:00 Completed [facility] Zoster(Zostavax)( kayy) 2005-10-19 00:00:00 Completed [facility] TD, NOS 2005-10-19 00:00:00 Completed [facility] Zoster(Zostavax)( kayy) 2005-10-19 00:00:00 Completed [facility] TD, NOS 2005-10-19 00:00:00 Completed [facility] Zoster(Zostavax)( kayy) 2005-10-19 00:00:00 Completed [facility] TD, NOS 2005-10-19 00:00:00 Completed [facility] Zoster(Zostavax)( kayy) 2005-10-19 00:00:00 Completed [facility] TD, NOS 2005-10-19 00:00:00 Completed [facility]00:00 Completed [facility] TD, NOS 2005-10-19 00:00:00 Completed [facility] 2005-10[facility]19 00:00:00 Completed [facility] TD, NOS 2005-10-19 00:00:00 Completed [facility] 2005-10-19 00:00:00 Completed [facility] TD, NOS 2005-10-19 00:00:00 Completed [facility] Zoster(Zostavax)([facility]) 2005-10-19 00:00:00 Completed [facility] TD, NOS 2005-10-19 00:00:00 Completed [facility] 2005-10-19 00:00:00 Completed [facility] TD, NOS 2005-10-19 00:00:00 Completed [facility] Zoster(Zostavax)([facility]) 2005-10-19 00:00:00 Completed [facility] TD, NOS 2005-10-19 00:00:00 Completed [facility] 2005-10-19 00:00:00 Completed [facility] TD, NOS 2005-10-19 00:00:00 Completed [facility] 2005-10-19 00:00:00 Completed [facility] TD, NOS 2005-10-19 00:00:00 Completed [facility] Zoster(Zostavax)([facility]) 2005-10-19 00:00:00 Completed Td 2005-10-19 00:00:00 Completed [facility] 2005-10-19 00:00:00 Completed [facility] Td 2005-10-19 00:00:00 Completed [facility] 2005-10-19 00:00:00 Completed [facility] Td 2005-10-19 00:00:00 Completed [facility] Zoster(Zostavax)([facility]) 2005-10-19 00:00:00 Completed [facility] Td 2005-10-19 00:00:00 Completed [facility] Zoster(Zostavax)([facility]) 2005-10-19 00:00:00 Completed [facility] Td 2005-10-19 00:00:00 Completed [facility] Zoster(Zostavax)([facility]) 2005-10-19 00:00:00 Completed [facility] Td 2005-10-19 00:00:00 Completed [facility] Zoster(Zostavax)([facility]) 2005-10-19 00:00:00 Completed [facility] Td 2005-10-19 00:00:00 Completed [facility] Zoster(Zostavax)([facility]) 2005-10-19 00:00:00 Completed [facility] Td 2005-10-19 00:00:00 Completed [facility] Zoster(Zostavax)([facility]) 2005-10-19 00:00:00 Completed [facility] Td 2005-10-19 00:00:00 Completed [facility] Zoster(Zostavax)([facility]) 2005-10-19 00:00:00 Completed [facility] Td 2005-10-19 00:00:00 Completed [facility] Zoster(Zostavax)([facility]) 2005-10-19 00:00:00 Completed [facility] Td 2005-10-19 00:00:00 Completed [facility] Zoster(Zostavax)([facility]) 2005-10-19 00:00:00 Completed [facility] Td 2005-10-19 00:00:00 Completed [facility] Zoster(Zostavax)([facility]) 2005-10-19 00:00:00 Completed [facility] Td 2005-10-19 00:00:00 Completed [facility] Influenza Virus Vaccine Quad ID 18-64 YRS Unknown Completed [facility] Pneumococcal 13 Conjugate, PCV13 (Prevnar 13) Unknown Completed [facility] Influenza High Dose Unknown Completed [facility] SARS-COV-2 COVID-19 PFIZER VACCINE Unknown Completed [facility] SARS-COV-2 COVID-19 PFIZER LENORE-SUCROSE VACCINE (BALTAZAR TOP) Unknown Completed [facility] Zoster(Zostavax)(Sh ingles) Unknown Completed [facility] SARS-COV-2 COVID-19 LENORE-SUCROSE VACCINE 12 YRS+, BIVALENT 0.3ML, IM, (PFIZER BALTAZAR TOP) Unknown Completed [facility] Pneumococcal Polysaccharide, PPSV23 (PNEUMOVAX) Unknown Completed [facility] TD, NOS Unknown Completed [facility] Influenza Virus Vaccine Quad IM 3+ YRS Unknown Completed [facility] Pneumococcal Polysaccharide, PPSV23 (PNEUMOVAX) Unknown Completed [facility] Influenza Virus Vaccine Quad ID 18-64 YRS Unknown Completed [facility] Pneumococcal 13 Conjugate, PCV13 (Prevnar 13) Unknown Completed [facility] Influenza High Dose Unknown Completed [facility] SARS-COV-2 COVID-19 PFIZER VACCINE Unknown Completed [facility] SARS-COV-2 COVID-19 PFIZER LENORE-SUCROSE VACCINE (BALTAZAR TOP) Unknown Completed [facility] Zoster(Zostavax)( ingles) Unknown Completed [facility] TD, NOS Unknown Completed [facility] Influenza Virus Vaccine Quad IM 3+ YRS Unknown Completed [facility] Pneumococcal Polysaccharide, PPSV23 (PNEUMOVAX) Unknown Completed [facility] Influenza Virus Vaccine Quad ID 18-64 YRS Unknown Completed [facility] Pneumococcal 13 Conjugate, PCV13 (Prevnar 13) Unknown Completed [facility] Influenza High Dose Unknown Completed [facility] SARS-COV-2 COVID-19 PFIZER VACCINE Unknown Completed [facility] SARS-COV-2 COVID-19 PFIZER LENORE-SUCROSE VACCINE (BALTAZAR TOP) Unknown Completed [facility] Zoster(Zostavax)(Sh ingles) Unknown Completed [facility] TD, NOS Unknown Completed [facility] Influenza Virus Vaccine Quad IM 3+ YRS Unknown Completed [facility] TD, NOS Unknown Completed [facility] Influenza Virus Vaccine Quad IM 3+ YRS Unknown Completed [facility] Pneumococcal Polysaccharide, PPSV23 (PNEUMOVAX) Unknown Completed [facility] Influenza Virus Vaccine Quad ID 18-64 YRS Unknown Completed [facility] Pneumococcal 13 Conjugate, PCV13 (Prevnar 13) Unknown Completed [facility] Influenza High Dose Unknown Completed [facility] SARS-COV-2 COVID-19 PFIZER VACCINE Unknown Completed [facility] SARS-COV-2 COVID-19 PFIZER LENORE-SUCROSE VACCINE (BALTAZAR TOP) Unknown Completed [facility] Zoster(Zostavax)(Sh ingles) Unknown Completed [facility] SARS-COV-2 COVID-19 LENORE-SUCROSE VACCINE 12 YRS+, BIVALENT 0.3ML, IM, (PFIZER BALTAZAR TOP) Unknown Completed [facility] TD, NOS Unknown Completed [facility] Influenza Virus Vaccine Quad IM 3+ YRS Unknown Completed [facility] Pneumococcal Polysaccharide, PPSV23 (PNEUMOVAX) Unknown Completed [facility] Influenza Virus Vaccine Quad ID 18-64 YRS Unknown Completed [facility] Pneumococcal 13 Conjugate, PCV13 (Prevnar 13) Unknown Completed [facility] Influenza High Dose Unknown Completed [facility] SARS-COV-2 COVID-19 PFIZER VACCINE Unknown Completed [facility] SARS-COV-2 COVID-19 PFIZER LENORE-SUCROSE VACCINE (BALTAZAR TOP) Unknown Completed [facility] Zoster(Zostavax)(Sh ingles) Unknown Completed [facility] SARS-COV-2 COVID-19 LENORE-SUCROSE VACCINE 12 YRS+, BIVALENT 0.3ML, IM, (PFIZER BALTAZAR TOP) Unknown Completed [facility] TD, NOS Unknown Completed [facility] Influenza Virus Vaccine Quad IM 3+ YRS Unknown Completed [facility] Pneumococcal Polysaccharide, PPSV23 (PNEUMOVAX) Unknown Completed [facility] Influenza Virus Vaccine Quad ID 18-64 YRS Unknown Completed [facility] Pneumococcal 13 Conjugate, PCV13 (Prevnar 13) Unknown Completed [facility] Influenza High Dose Unknown Completed [facility] SARS-COV-2 COVID-19 PFIZER VACCINE Unknown Completed [facility] SARS-COV-2 COVID-19 PFIZER LENORE-SUCROSE VACCINE (BALTAZAR TOP) Unknown Completed [facility] Zoster(Zostavax)(Sh ingles) Unknown Completed [facility] SARS-COV-2 COVID-19 LENORE-SUCROSE VACCINE 12 YRS+, BIVALENT 0.3ML, IM, (PFIZER BALTAZAR TOP) Unknown Completed [facility] TD, NOS Unknown Completed [facility] Influenza Virus Vaccine Quad IM 3+ YRS Unknown Completed [facility] Pneumococcal Polysaccharide, PPSV23 (PNEUMOVAX) Unknown Completed [facility] Influenza Virus Vaccine Quad ID 18-64 YRS Unknown Completed [facility] Pneumococcal 13 Conjugate, PCV13 (Prevnar 13) Unknown Completed [facility] Influenza High Dose Unknown Completed [facility] SARS-COV-2 COVID-19 PFIZER VACCINE Unknown Completed [facility] SARS-COV-2 COVID-19 PFIZER LENORE-SUCROSE VACCINE (BALTAZAR TOP) Unknown Completed [facility] Zoster(Zostavax)(Sh ingles) Unknown Completed [facility] SARS-COV-2 COVID-19 LENORE-SUCROSE VACCINE 12 YRS+, BIVALENT 0.3ML, IM, (PFIZER BALTAZAR TOP) Unknown Completed [facility] TD, NOS Unknown Completed [facility] Influenza Virus Vaccine Quad IM 3+ YRS Unknown Completed [facility] Pneumococcal Polysaccharide, PPSV23 (PNEUMOVAX) Unknown Completed [facility] Influenza Virus Vaccine Quad ID 18-64 YRS Unknown Completed [facility] Pneumococcal 13 Conjugate, PCV13 (Prevnar 13) Unknown Completed [facility] Influenza High Dose Unknown Completed [facility] SARS-COV-2 COVID-19 PFIZER VACCINE Unknown Completed [facility] SARS-COV-2 COVID-19 PFIZER LENORE-SUCROSE VACCINE (BALTAZAR TOP) Unknown Completed [facility] Zoster(Zostavax)(Sh ingles) Unknown Completed [facility] SARS-COV-2 COVID-19 LENORE-SUCROSE VACCINE 12 YRS+, BIVALENT 0.3ML, IM, (PFIZER BALTAZAR TOP) Unknown Completed [facility] TD, NOS Unknown Completed [facility] Influenza Virus Vaccine Quad IM 3+ YRS Unknown Completed [facility] Pneumococcal Polysaccharide, PPSV23 (PNEUMOVAX) Unknown Completed [facility] Influenza Virus Vaccine Quad ID 18-64 YRS Unknown Completed [facility] Pneumococcal 13 Conjugate, PCV13 (Prevnar 13) Unknown Completed [facility] Influenza High Dose Unknown Completed [facility] SARS-COV-2 COVID-19 PFIZER VACCINE Unknown Completed [facility] SARS-COV-2 COVID-19 PFIZER LENORE-SUCROSE VACCINE (BALTAZAR TOP) Unknown Completed [facility] Zoster(Zostavax)(Sh ingles) Unknown Completed [facility] SARS-COV-2 COVID-19 LENORE-SUCROSE VACCINE 12 YRS+, BIVALENT 0.3ML, IM, (PFIZER BALTAZAR TOP) Unknown Completed [facility] Pneumococcal 20 Conjugate, PCV20 (Prevnar 20) Unknown Completed [facility] TD, NOS Unknown Completed [facility] Influenza Virus Vaccine Quad IM 3+ YRS Unknown Completed [facility] Pneumococcal Polysaccharide, PPSV23 (PNEUMOVAX) Unknown Completed [facility] Influenza Virus Vaccine Quad ID 18-64 YRS Unknown Completed [facility] Pneumococcal 13 Conjugate, PCV13 (Prevnar 13) Unknown Completed [facility] Influenza, High-Dose, Trivalent, PF (FLUZONE) Unknown Completed [facility] SARS-COV-2 COVID-19 PFIZER VACCINE Unknown Completed [facility] SARS-COV-2 COVID-19 PFIZER LENORE-SUCROSE VACCINE (BALTAZAR TOP) Unknown Completed [facility] Zoster(Zostavax)( ingles) Unknown Completed [facility] SARS-COV-2 COVID-19 LENORE-SUCROSE VACCINE 12 YRS+, BIVALENT 0.3ML, IM, (PFIZER BALTAZAR TOP) Unknown Completed [facility] Pneumococcal 20 Conjugate, PCV20 (Prevnar 20) Unknown Completed [facility] Vital Signs Vital Name Observation Time Observation Value Comments S ource Systolic blood pressure 2024-07-06 16:06:00 112 mm[Hg] [facility] Diastolic blood pressure 2024-07-06 16:06:00 72 mm[Hg] [facility] Heart rate 2024-07-06 16:06:00 82 /min [facility] Body temperature 2024-07-06 16:00:00 36.61 Jocy [facility] Respiratory rate 2024-07-06 16:00:00 17 /min [facility] Body height 2024-07-06 16:00:00 147.3 cm [facility] Body weight 2024-07-06 16:00:00 44.226 kg [facility] BMI 2024-07-06 16:00:00 20.38 kg/m2 [facility] Oxygen saturation in Arterial blood by Pulse oximetry 2024-07-06 16:00:00 100 /min [facility] Systolic blood pressure 2023-07-15 15:48:00 124 mm[Hg] [facility] Diastolic blood pressure 2023-07-15 15:48:00 80 mm[Hg] [facility] Heart rate 2023-07-15 15:48:00 73 /min [facility] Body temperature 2023-07-15 15:43:00 36.78 Jocy [facility] Respiratory rate 2023-07-15 15:43:00 18 /min [facility] Body height 2023-07-15 15:43:00 147.3 cm [facility] Body weight 2023-07-15 15:43:00 47.673 kg [facility] BMI 2023-07-15 15:43:00 21.97 kg/m2 [facility] Oxygen saturation in Arterial blood by Pulse oximetry 2023-07-15 15:43:00 100 /min [facility] Systolic blood pressure 2022-11-05 19:13:00 132 mm[Hg] [facility] Diastolic blood pressure 2022-11-05 19:13:00 83 mm[Hg] [facility] Heart rate 2022-11-05 19:13:00 73 /min [facility] Body temperature 2022-11-05 19:13:00 36.33 Jocy [facility] Respiratory rate 2022-11-05 19:13:00 18 /min [facility] Body height 2022-11-05 19:13:00 147.3 cm [facility] Body weight 2022-11-05 19:13:00 48.852 kg [facility] BMI 2022-11-05 19:13:00 22.51 kg/m2 [facility] Oxygen saturation in Arterial blood by Pulse oximetry 2022-11-05 19:13:00 100 /min [facility] Systolic blood pressure 2022-07-16 16:06:00 124 mm[Hg] [facility] Diastolic blood pressure 2022-07-16 16:06:00 68 mm[Hg] [facility] Heart rate 2022-07-16 16:02:00 63 /min [facility] Body temperature 2022-07-16 16:02:00 35.94 Jocy [facility] Respiratory rate 2022-07-16 16:02:00 17 /min [facility] Body height 2022-07-16 16:02:00 147.3 cm [facility] Body weight 2022-07-16 16:02:00 50.304 kg [facility] BMI 2022-07-16 16:02:00 23.18 kg/m2 [facility] Oxygen saturation in Arterial blood by Pulse oximetry 2022-07-16 16:02:00 99 /min [facility] Systolic blood pressure 2022-04-07 20:54:00 131 mm[Hg] [facility] Diastolic blood pressure 2022-04-07 20:54:00 76 mm[Hg] [facility] Heart rate 2022-04-07 20:54:00 75 /min [facility] Body temperature 2022-04-07 20:54:00 35.67 Jocy [facility] Respiratory rate 2022-04-07 20:54:00 18 /min [facility] Body height 2022-04-07 20:54:00 147.3 cm [facility] Body weight 2022-04-07 20:54:00 50.44 kg [facility] BMI 2022-04-07 20:54:00 23.24 kg/m2 [facility] Oxygen saturation in Arterial blood by Pulse oximetry 2022-04-07 20:54:00 95 /min [facility] Procedures Procedure Date / Time Performed Performing Clinician Source DEXA AXIAL (HIP AND SPINE) 2024-08-01 17:00:30 Requisition, Paper [facility] PNEUMOCOCCAL 20 CONJUGATE (PREVNAR 20) VACCINE 2024-07-06 16:41:50 Kalyn Jin [facility] REFERRAL- REQUEST/RESPONSE 2024-04-18 15:39:55 Doctor Unassigned, [place] [facility] REFERRAL- REQUEST/RESPONSE 2024-04-18 14:49:24 Doctor Unassigned, [place] [facility] VACCINATIONS - CONSENTS, ELIGIBILITY, HISTORY 2023-06-07 05:01:00 Doctor Unassigned, [place] [facility] CT THORAX WO CONTRAST 2023-03-23 18:22:09 Roselyn Lai [facility] PATIENT FINANCIAL POLICY 2023-03-23 17:59:24 Doctor Unassigned, [place] [facility] CONSENT/REFUSAL FOR DIAGNOSIS AND TREATMENT 2023-03-23 17:59:01 Doctor Unassigned, [place] [facility] ASSIGNMENT OF BENEFITS 2023-03-23 17:58:39 Docto r Unassigned, [place] [facility] POWER OF MANAGER INVENTORY CONTROL 2022-12-15 06:01:00 Doctor Angi ssigned, [place] [facility] VACCINATIONS - CONSENTS, ELIGIBILITY, HISTORY 2022-07-20 05:01:00 Doctor Unassigned, [place] [facility] SARS-COV-2 COVID-19 LENORE-SUCROSE VACCINE 12 YRS+, BIVALENT 0.3ML, IM, (PFIZER BALTAZAR TOP BOOSTER) 2022-07-11 16:04:55 Doctor Unassigned, [place] [facility] MR LUMBAR SPINE WO CONTRAST 2017-02-12 21:08:00 Ita [place] [facility] PATIENT QUESTIONNAIRE 2017-02-12 05:01:00 Doctor Unassigned, [place] [facility] MEDICATION CORRESPONDENCE 2015-09-10 06:01:00 Do ctor Unassigned, [place] [facility] CONSENT/REFUSAL FOR DIAGNOSIS AND TREATMENT 2015-09-06 19:07:24 Doctor Unassigned, [place] [facility] PATIENT QUESTIONNAIRE 2015-09-06 06:01:00 Doctor Unassigned, [place] [facility] MEDICATION CORRESPONDENCE 2015-09-05 06:01:00 Do ctor Unassigned, [place] [facility] Encounters Start Date/Time End Date/Time Encounter Type Admission Type Attending [facility] Care Facility Care Department Encounter ID Source 2021-08-15 23:11:49 Outpatient CAROLA LYNCH [facility] [id number] [facility] 2024-04-18 00:00:00 2024-12-03 07:24:30 Orders Only Doctor Unassigned, [place] Doctor Unassigned, [place] [facility] ([facility] 1.2.840.114 350.1.13.10 4.2.7.2.686 [id number] [facility] 2024-04-18 00:00:00 2024-12-03 07:24:20 Orders Only Doctor Unassigned, [place] Doctor Unassigned, [place] [facility] ([facility] 1.2.840.114 350.1.13.10 4.2.7.2.686 [id number] [facility] 2015-09-05 00:00:00 2024-12-03 04:23:00 Orders Only Esthela Monge Diana M [facility] 1.2.840.114 350.1.13.10 4.2.7.2.686 [id number] [facility] 2017-02-12 00:00:00 2024-12-03 03:50:42 Orders Only Doctor Unassigned, [place] Doctor Unassigned, [place] [facility] ([facility] 1.2.840.114 350.1.13.10 4.2.7.2.686 [id number] [facility] 2024-08-01 11:44:13 2024-08-01 23:59:00 Outpatient R RADIOLOGY [facility] [id number] [facility] 2024-08-01 11:44:13 2024-08-01 23:59:00 Hospital Encounter Radiology Radiology [facility] 1.2.840.114 350.1.13.10 4.2.7.2.686 [id number] [facility] 2024-07-07 00:00:00 2024-07-07 13:59:07 Telephone Matt Cordova [facility] 1.0.114 350.1.13.10 4.2.7.2.686 [id number] [facility] 2024-07-06 11:00:00 2024-07-06 11:30:00 Office Visit Matt Cordova [facility] 1.0.114 350.1.13.10 4.2.7.2.686 [id number] [facility] 2024-07-06 11:00:00 2024-07-06 11:00:00 Outpatient MATT BEAL [facility] [id number] [facility] 2024-07-04 00:00:00 2024-07-04 14:13:30 [facility] 1.0.114 350.1.13.10 4.2.7.2.686 [id number] [facility] 2024-06-22 13:00:00 2024-06-22 14:30:00 [employer]otions Firm Accounts Manager Visit Testing, [facility] Pulmonary Function Matt Cordova Testing, [facility] Pulmonary Function [facility] 1.0.114 350.1.13.10 4.2.7.2.686 [id number] [facility] 2024-06-22 13:00:00 2024-06-22 13:00:00 Outpatient R MATT CORDOVA [facility] [id number] [facility] 2024-04-18 00:00:00 2024-05-21 18:21:55 Patient Secure Msg Doctor Unassigned, [place] [facility] 1.0.114 350.1.13.10 4.2.7.2.686 [id number] [facility] 2024-04-25 13:00:00 2024-04-25 13:00:00 Outpatient R [facility] [id number] [facility] 2024-04-18 00:00:00 2024-04-22 16:31:15 [facility] 1.840.114 350.1.13.10 4.2.7.2.686 [id number] [facility] 2024-03-29 09:00:00 2024-03-29 09:15:00 Promotions Firm Accounts Manager Visit Pob, [facility] 1..840.114 350.1.13.10 4.2.7.2.686 [id number] [facility] 2024-03-29 09:00:00 2024-03-29 09:00:00 Outpatient R CAROLA ESQUEDA [facility] [id number] [facility] 2023-07-15 11:00:00 2023-07-15 11:30:00 Office Visit Matt Cordova [facility] 1.840.114 350.1.13.10 4.2.7.2.686 [id number] [facility] 2023-07-15 11:00:00 2023-07-15 11:00:00 Outpatient R MATT CORDOVA [facility] [id number] [facility] 2023-07-07 00:00:00 2023-07-07 00:00:00 [facility] 1.840.114 350.1.13.10 4.2.7.2.686 [id number] [facility] 2023-06-07 00:00:00 2023-06-07 00:00:00 Orders Only Doctor Unassigned, [place] [facility] 1.0.114 350.1.13.10 4.2.7.2.686 [id number] [facility] 2023-05-18 00:00:00 2023-05-18 00:00:00 [facility] 1.0.114 350.1.13.10 4.2.7.2.686 [id number] [facility] 2023-04-28 00:00:00 2023-04-28 00:00:00 Den[facility]irre [facility] 1..114 350.1.13.10 4.2.7.2.686 [id number] [facility] 2023-03-23 12:58:24 2023-03-23 23:59:00 Outpatient MATT BEAL [facility] [id number] [facility] 2023-03-23 12:58:24 2023-03-23 23:59:00 Hospital Encounter Matt Cordova [facility] 1..114 350.1.13.10 4.2.7.2.686 [id number] [facility] 2023-03-17 00:00:00 2023-03-17 00:00:00 Outpatient MATT BEAL [facility] [id number] [facility] 2023-02-16 00:00:00 2023-02-16 00:00:00 Matt Michelle [facility] 1.114 350.1.13.10 4.2.7.2.686 [id number] [facility] 2022-12-23 11:00:00 2022-12-23 11:00:00 Outpatient R [facility] [id number] [facility] 2022-12-15 00:00:00 2022-12-15 00:00:00 Orders Only Doctor Unassigned, [place] [facility] 1.2.840.114 350.1.13.10 4.2.7.2.686 [id number] [facility] 2022-12-11 00:00:00 2022-12-11 00:00:00 Telephone Denise Upton [facility] 1.2.840.114 350.1.13.10 4.2.7.2.686 [id number] [facility] 2022-12-02 00:00:00 2022-12-02 00:00:00 Refill Denise Upton [facility] 1.2.840.114 350.1.13.10 4.2.7.2.686 [id number] [facility] 2022-11-26 00:00:00 2022-11-26 00:00:00 Telephone Denise Upton [facility] 1.2.840.114 350.1.13.10 4.2.7.2.686 [id number] [facility] 2022-11-05 13:30:00 2022-11-05 14:00:00 Office Visit Denise Upton [facility] 1.2.840.114 350.1.13.10 4.2.7.2.686 [id number] [facility] 2022-11-05 13:30:00 2022-11-05 13:30:00 Outpatient R DENISE UPTON [facility] [id number] [facility] 2022-10-21 15:00:00 2022-10-21 15:00:00 Outpatient R DENISE UPTON [facility] [id number] [facility] 2022-10-06 14:00:00 2022-10-06 14:00:00 Outpatient Tyler CLARKLAZARO DENISE [facility] [id number] [facility] 2022-10-01 00:00:00 2022-10-01 00:00:00 Outpatient R MATT CORDOVA [facility] [id number] [facility] 2022-08-25 00:00:00 2022-08-25 00:00:00 Telephone Matt Cordova [facility] 1.114 350.1.13.10 4.2.7.2.686 [id number] [facility] 2022-08-06 00:00:00 2022-08-06 00:00:00 [facility] 1..114 350.1.13.10 4.2.7.2.686 [id number] [facility] 2022-07-24 00:00:00 2022-07-24 00:00:00 Matt Michelle [facility] 1..114 350.1.13.10 4.2.7.2.686 [id number] [facility] 2022-07-20 00:00:00 2022-07-20 00:00:00 Orders Only Doctor Unassigned, [place] [facility] 1..114 350.1.13.10 4.2.7.2.686 [id number] [facility] 2022-07-16 11:00:00 2022-07-16 11:30:00 Office Visit Matt Cordova [facility] 1..114 350.1.13.10 4.2.7.2.686 [id number] [facility] 2022-07-16 11:00:00 2022-07-16 11:00:00 Outpatient Tyler MATT CORDOVA [facility] [id number] [facility] 2022-07-16 11:00:00 2022-07-16 11:00:00 Outpatient Tyler MATT CORDOVA [facility] [id number] [facility] 2022-07-16 11:00:00 2022-07-16 11:00:00 Outpatient Tyler MATT CORDOVA [facility] [id number] [facility] 2022-07-16 00:00:00 2022-07-16 00:00:00 Renata Kimbrough [facility] 1.2.840.114 350.1.13.10 4.2.7.2.686 [id number] [facility] 2022-07-11 11:00:00 2022-07-11 11:10:00 Imm/Inj Visit Vaccine, Adc Family Medicine [facility] 1.2.840.114 350.1.13.10 4.2.7.2.686 [id number] [facility] 2022-07-11 11:00:00 2022-07-11 11:00:00 Outpatient RENATA CAPELLAN [facility] [id number] [facility] 2022-07-07 00:00:00 2022-07-07 00:00:00 Telephone [facility] 1.2.840.114 350.1.13.10 4.2.7.2.686 [id number] [facility] 2022-07-04 00:00:00 2022-07-04 00:00:00 Matt Michelle [facility] 1.0.114 350.1.13.10 4.2.7.2.686 [id number] [facility] 2022-06-26 00:00:00 2022-06-26 00:00:00 Nawaf [facility]Matt [facility] 1.840.114 350.1.13.10 4.2.7.2.686 [id number] [facility] 2022-05-14 00:00:00 2022-05-14 00:00:00 [facility] 1..114 350.1.13.10 4.2.7.2.686 [id number] [facility] 2022-04-11 00:00:00 2022-04-11 00:00:00 Telephone Renata Mancini [facility] 1.840.114 350.1.13.10 4.2.7.2.686 [id number] [facility] 2022-04-08 00:00:00 2022-04-08 00:00:00 Patient Outreach Ilana Connelly [facility] 1.84.114 350.1.13.10 4.2.7.2.686 [id number] [facility] 2022-04-07 15:40:00 2022-04-07 17:32:49 Outpatient R RENATA MANCINI [facility] [id number] [facility] 2022-04-07 15:40:00 2022-04-07 17:32:49 Office Visit Renata Mancini [facility] 1.840.114 350.1.13.10 4.2.7.2.686 [id number] [facility] 2022-04-07 15:40:00 2022-04-07 15:40:00 Outpatient RENATA CAPELLAN [facility] [id number] [facility] 2022-03-19 00:00:00 2022-03-19 00:00:00 Patient Secure Msg Doctor Unassigned, [place] [facility] 1.2.840.114 350.1.13.10 4.2.7.2.686 [id number] [facility] 2022-03-14 00:00:00 2022-03-14 00:00:00 Patient Secure Msg Doctor Unassigned, [place] [facility] 1.2.840.114 350.1.13.10 4.2.7.2.686 [id number] [facility] 2022-03-04 14:00:00 2022-03-04 23:59:00 Outpatient CHIP BRANTLEY HOWARD [facility] [id number] [facility] 2022-03-04 14:00:00 2022-03-04 14:00:00 Outpatient CHIP BRANTLEY HOWARD [facility] [id number] [facility] 2022-03-04 13:00:00 2022-03-04 13:41:00 Outpatient CHIP BRANTLEY HOWARD [facility] [id number] [facility] 2022-03-04 13:00:00 2022-03-04 13:41:00 Office Visit Chip Melendez [facility] GODINE[facility] 1.2.840.114 350.1.13.10 4.2.7.2.686 [id number] [facility] 2022-03-04 12:45:00 2022-03-04 13:00:00 [employer] Accounts Manager Visit Lab, Renata Shaffer [facility] 1.84114 350.1.13.10 4.2.7.2.686 [id number] [facility] 2022-03-04 11:00:00 2022-03-04 12:10:08 Office Visit Sumit Sotomayor [facility] 1.114 350.1.13.10 4.2.7.2.686 [id number] [facility] 2022-03-04 11:00:00 2022-03-04 12:10:08 Outpatient R SUMIT SOTOMAYOR [facility] [id number] [facility] 2022-03-04 10:00:00 2022-03-04 10:00:00 Outpatient RENATA CAPELLAN [facility] [id number] [facility] 2022-03-04 00:00:00 2022-03-04 00:00:00 Matt Michelle [facility] 1.114 350.1.13.10 4.2.7.2.686 [id number] [facility] 2022-02-22 00:00:00 2022-02-22 00:00:00 Letter (Out) Eugenia Rosenthal [facility] 1.114 350.1.13.10 4.2.7.2.686 [id number] [facility] 2022-02-21 15:15:00 2022-02-21 15:30:00 Laboratory Only Only, Adc Pob2 Test Nasir Santos [facility] 1.84.114 350.1.13.10 4.2.7.2.686 [id number] [facility] 2022-02-21 15:15:00 2022-02-21 15:15:00 Outpatient R [facility] [id number] [facility] 2022-02-21 15:15:00 2022-02-21 15:15:00 Outpatient R NASIR SANTOS [facility] [id number] [facility] 2022-01-30 00:00:00 2022-01-30 00:00:00 Telephone Renata Mancini [facility] 1.2.840.114 350.1.13.10 4.2.7.2.686 [id number] [facility] 2022-01-30 00:00:00 2022-01-30 00:00:00 Telephone Renata Mancini [facility] 1.2.840.114 350.1.13.10 4.2.7.2.686 [id number] [facility] 2022-01-30 00:00:00 2022-01-30 00:00:00 Telephone Renata Mancini [facility] PROFESS NAL BUILDING 1.2.840.114 350.1.13.10 4.2.7.2.686 [id number] [facility] 2022-01-27 00:00:00 2022-01-27 00:00:00 Telephone Renata Mancini [facility] NAL BUILDING 1.2.840.114 350.1.13.10 4.2.7.2.686 [id number] [facility] 2022-01-24 00:00:00 2022-01-24 00:00:00 Telephone Renata Mancini [facility] NAL BUILDING 1.2.840.114 350.1.13.10 4.2.7.2.686 [id number] [facility] 2022-01-24 00:00:00 2022-01-24 00:00:00 Telephone Renata Mancini [facility] 1.84.114 350.1.13.10 4.2.7.2.686 [id number] [facility] 2022-01-23 00:00:00 2022-01-23 00:00:00 Matt Michelle [facility] 1.114 350.1.13.10 4.2.7.2.686 [id number] [facility] 2022-01-15 13:00:00 2022-01-15 13:10:00 Imm/Inj Visit Vaccine, Adc Family Medicine Nasir Santos [facility] 1.840.114 350.1.13.10 4.2.7.2.686 [id number] [facility] 2022-01-15 13:00:00 2022-01-15 13:00:00 Outpatient NASIR HANSON [facility] [id number] [facility] 2022-01-12 00:00:00 2022-01-12 00:00:00 RefRenata Mora [facility] 1.840.114 350.1.13.10 4.2.7.2.686 [id number] [facility] 2021-12-23 18:00:00 2021-12-23 18:00:00 Outpatient JOSHUA ROBISON [facility] [id number] [facility] 2021-12-17 00:00:00 2021-12-17 00:00:00 Matt Michelle [facility] 1.114 350.1.13.10 4.2.7.2.686 [id number] [facility] 2021-11-13 00:00:00 2021-11-13 00:00:00 RefRenata Mora [facility] 1.2.840.114 350.1.13.10 4.2.7.2.686 [id number] [facility] 2021-10-02 10:00:00 2021-10-02 11:30:00 [employer] Accounts Manager Visit Therapist, Enmanuel Gordon [facility] 1.840.114 350.1.13.10 4.2.7.2.686 [id number] [facility] 2021-10-02 10:00:00 2021-10-02 10:00:00 Outpatient R ENMANUEL DIAZ [facility] [id number] [facility] 2021-10-02 00:00:00 2021-10-02 00:00:00 Orders Only Doctor Unassigned, [place] [facility] 1.840.114 350.1.13.10 4.2.7.2.686 [id number] [facility] 2021-09-09 00:00:00 2021-09-09 00:00:00 Telephone Renata Mancini [facility] 1..840.114 350.1.13.10 4.2.7.2.686 [id number] [facility] 2021-09-09 00:00:00 2021-09-09 00:00:00 Telephone Renata Mancini [facility] 1.2.840.114 350.1.13.10 4.2.7.2.686 [id number] [facility] 2021-07-25 00:00:00 2021-07-25 00:00:00 Matt Michelle [facility] 1.284.114 350.1.13.10 4.2.7.2.686 [id number] [facility] 2021-07-17 11:00:00 2021-07-17 11:00:00 Outpatient R MATT CORDOVA [facility] [id number] [facility] 2021-07-17 10:21:07 2021-07-17 10:57:04 [facility] 1.84.114 350.1.13.10 4.2.7.2.686 [id number] [facility] 2021-07-09 00:00:00 2021-07-09 00:00:00 Telephone Renata Mancini [facility] Professio nal Building 1.2.840.114 350.1.13.10 4.2.7.2.686 [id number] [facility] 2021-07-05 10:13:42 2021-07-05 11:17:51 [facility] 1.2.840.114 350.1.13.10 4.2.7.2.686 [id number] [facility] 2021-07-05 10:40:00 2021-07-05 10:40:00 Outpatient R RENATA MANCINI [facility] [id number] [facility] 2021-07-05 09:20:21 2021-07-05 09:30:21 Imm/Inj Visit Nurse, Cierra Martines ImmunNasir Rowe [facility] Professio nal Building 1.2.840.114 350.1.13.10 4.2.7.2.686 [id number] [facility] 2021-07-05 09:30:00 2021-07-05 09:30:00 Outpatient NASIR HANSON [facility] [id number] [facility] 2021-07-05 00:00:00 2021-07-05 00:00:00 Telephone Renata Mancini [facility] Building 1.2.840.114 350.1.13.10 4.2.7.2.686 [id number] [facility] 2021-07-05 00:00:00 2021-07-05 00:00:00 Telephone Renata Mancini [facility] 1.2.840.114 350.1.13.10 4.2.7.2.686 [id number] [facility] 2021-06-26 11:00:00 2021-06-26 11:00:00 Outpatient MATT BEAL [facility] [id number] [facility] 2021-05-18 00:00:00 2021-05-18 00:00:00 Refill Joshua Muñoz [facility] 1.2.840.114 350.1.13.10 4.2.7.2.686 [id number] 044 [id number] [facility] 2021-05-12 00:00:00 2021-05-12 00:00:00 Refill Tracey Figueroa [facility] 1.2.840.114 350.1.13.10 4.2.7.2.686 [id number] [id number] [facility] 2021-05-07 00:00:00 2021-05-07 00:00:00 Refill Joshua Muñoz [facility] 1.2.840.114 350.1.13.10 4.2.7.2.686 [id number] [id number] [facility] 2021-04-05 00:00:00 2021-04-05 00:00:00 Refill Joshua Muñoz [facility] 1.2.840.114 350.1.13.10 4.2.7.2.686 [id number] 044 [id number] [facility] 2021-04-05 00:00:00 2021-04-05 00:00:00 [facility] 1.2.840.114 350.1.13.10 4.2.7.2.686 [id number] [facility] 2021-03-24 00:00:00 2021-03-24 00:00:00 [facility] 1.2.840.114 350.1.13.10 4.2.7.2.686 [id number] 044 [id number] [facility] 2021-03-18 00:00:00 2021-03-18 00:00:00 [facility]ill [facility] 1.2.840.114 350.1.13.10 4.2.7.2.686 [id number] 044 [id number] [facility] 2021-03-05 00:00:00 2021-03-05 00:00:00 Refill [facility] 1.2.840.114 350.1.13.10 4.2.7.2.686 [id number] 044 [id number] [facility] 2021-01-04 00:00:00 2021-01-04 00:00:00 Telephone [facility] 1.2.840.114 350.1.13.10 4.2.7.2.686 [id number] 044 [id number] [facility] 2020-12-24 00:00:00 2020-12-24 00:00:00 Tracey An [facility] 1.2.840.114 350.1.13.10 4.2.7.2.686 [id number] 044 [id number] [facility] 2020-12-20 10:38:37 2020-12-20 10:53:37 [employer] Visit 2, [facility] Heather Muñoztany [facility] 1.2.840.114 350.1.13.10 4.2.7.2.686 [id number] [facility] 2020-12-20 10:18:07 2020-12-20 10:34:22 Office Visit Heather Muñoztany [facility] 1.2.840.114 350.1.13.10 4.2.7.2.686 [id number] 044 [id number] [facility] 2020-12-20 09:43:35 2020-12-20 10:31:23 Office Visit Joshua Muñoz [facility] 1.2.840.114 350.1.13.10 4.2.7.2.686 [id number] 044 [id number] [facility] 2020-12-20 10:30:00 2020-12-20 10:30:00 Outpatient R JOSHUA MUÑOZ [facility] [id number] [facility] 2020-12-13 10:30:00 2020-12-13 10:30:00 Outpatient R JORDY MARQUEZ [facility] [id number] [facility] 2020-12-06 08:20:00 2020-12-06 08:20:00 Outpatient R JORDY MARQUEZ [facility] [id number] [facility] 2020-11-13 15:50:00 2020-11-13 15:50:00 Outpatient Tyler ALMAJORDY [facility] [id number] [facility] 2020-10-27 00:00:00 2020-10-27 00:00:00 Refill Renata Mancini [facility] Professio nal Building 1.2.840.114 350.1.13.10 4.2.7.2.686 [id number] [facility] 2020-10-01 10:40:00 2020-10-01 10:40:00 Outpatient R RENATA MANCINI [facility] [id number] [facility] 2020-09-26 00:00:00 2020-09-26 00:00:00 [facility] 1.2.840.114 350.1.13.10 4.2.7.2.686 [id number] [facility] 2020-09-21 00:00:00 2020-09-21 00:00:00 RefTracey Brown [facility] Profess nal Building 1.2.840.114 350.1.13.10 4.2.7.2.686 [id number] [facility] 2020-09-20 00:00:00 2020-09-20 00:00:00 Telephone [facility] 1.2.840.114 350.1.13.10 4.2.7.2.686 [id number] [facility] 2020-09-18 00:00:00 2020-09-18 00:00:00 Telephone Renata Mancini [facility] Profess nal Building 1.2.840.114 350.1.13.10 4.2.7.2.686 [id number] [facility] 2020-09-15 00:00:00 2020-09-15 00:00:00 Refill Tracey Figueroa [facility] Building 1.2.840.114 350.1.13.10 4.2.7.2.686 [id number] [facility] 2020-09-14 00:00:00 2020-09-14 00:00:00 Refill Tracey Figueroa [facility] Building 1.2840.114 350.1.13.10 4.2.7.2.686 [id number] [facility] 2020-08-10 10:54:58 2020-08-10 16:14:49 Office Visit Renata Mancini [facility] Building 1.2.840.114 350.1.13.10 4.2.7.2.686 [id number] [facility] 2020-08-10 11:20:00 2020-08-10 11:20:00 Outpatient R RENATA MANCINI [facility] [id number] [facility] 2020-08-10 00:00:00 2020-08-10 00:00:00 Orders Only Doctor Unassigned, [place] [facility] 1.2840.114 350.1.13.10 4.2.7.2.686 [id number] [facility] 2020-08-09 00:00:00 2020-08-09 00:00:00 Telephone Renata Mancini [facility] 1.2840.114 350.1.13.10 4.2.7.2.686 [id number] [facility] 2020-08-08 19:40:00 2020-08-08 19:40:00 Outpatient R [facility] [id number] [facility] 2020-08-08 17:43:47 2020-08-08 18:03:47 Urgent Care Provider, [facility] Haleigh Patel [facility] Office Building One 1.2.840.114 350.1.13.10 4.2.7.2.686 [id number] [facility] 2020-07-26 08:17:43 2020-07-26 17:04:41 Telemedici ne Visit Katie Mancinizaunique [facility] Building 1.2.840.114 350.1.13.10 4.2.7.2.686 [id number] [facility] 2020-07-26 15:40:00 2020-07-26 15:40:00 Outpatient R RENATA MANCINI [facility] [id number] [facility] 2020-07-13 00:00:00 2020-07-13 00:00:00 Refill ManciniJulia ybarrawu [facility] Building 1.2.840.114 350.1.13.10 4.2.7.2.686 [id number] [facility] 2020-07-02 00:00:00 2020-07-02 00:00:00 Telephone Katie Mancinizaunique [facility] Building 1.2.840.114 350.1.13.10 4.2.7.2.686 [id number] [facility] 2020-06-27 10:05:19 2020-06-27 11:23:12 Office Visit Matt Cordova [facility] 1.2.840.114 350.1.13.10 4.2.7.2.686 [id number] [facility] 2020-06-27 10:30:00 2020-06-27 10:30:00 Outpatient MATT BEAL [facility] [id number] [facility] 2020-06-27 00:00:00 2020-06-27 00:00:00 Refill Jp Latif [facility] 1.2.840.114 350.1.13.10 4.2.7.2.686 [id number] [facility] 2020-06-14 00:00:00 2020-06-14 00:00:00 Telephone Elio Chip Lomeli [facility] Building 1.2.840.114 350.1.13.10 4.2.7.2.686 [id number] [facility] 2020-06-05 00:00:00 2020-06-05 00:00:00 Refill Chip Melendez [facility] Office Building 1.2.840.114 350.1.13.10 4.2.7.2.686 [id number] [facility] 2020-06-05 00:00:00 2020-06-05 00:00:00 Refill Renata Mancini [facility] Building 1.2.840.114 350.1.13.10 4.2.7.2.686 [id number] [facility] 2020-05-16 00:00:00 2020-05-16 00:00:00 Telephone Elio Chip Lomeli [facility] Building 1.2.840.114 350.1.13.10 4.2.7.2.686 [id number] [facility] 2020-05-15 14:12:03 2020-05-15 14:36:20 Office Visit Elio Chip Armani [facility] Building 1.2.840.114 350.1.13.10 4.2.7.2.686 [id number] [facility] 2020-05-15 14:20:00 2020-05-15 14:20:00 Outpatient CHIP BRANTLEY HOWARD [facility] [id number] [facility] 2020-05-04 00:00:00 2020-05-04 00:00:00 Chip Madden Armani [facility] Office Building 1.2.840.114 350.1.13.10 4.2.7.2.686 [id number] [facility] 2020-04-10 00:00:00 2020-04-10 00:00:00 Telephone Renata Mancini [facility] Building 1..840.114 350.1.13.10 4.2.7.2.686 [id number] [facility] 2020-04-06 12:11:13 2020-04-06 13:27:43 Office Visit Renata Mancini [facility] Building 1.2.840.114 350.1.13.10 4.2.7.2.686 [id number] [facility] 2020-04-06 12:20:00 2020-04-06 12:20:00 Outpatient RENATA CAPELLAN [facility] [id number] [facility] 2020-03-29 09:08:32 2020-03-29 11:34:00 Hospital Encounter Carola Lynch [facility] Surgical Center 1.84.114 350.1.13.10 4.2.7.2.686 [id number] [facility] 2020-03-29 00:00:00 2020-03-29 00:00:00 Orders Only Doctor Unassigned, [place] [facility] 1.284.114 350.1.13.10 4.2.7.2.686 [id number] [facility] 2020-03-28 09:56:06 2020-03-28 10:11:06 Laboratory Only Only, Adc Test Sergio Bhagat [facility] 1.2840.114 350.1.13.10 4.2.7.2.686 [id number] [facility] 2020-03-28 09:45:00 2020-03-28 09:45:00 Outpatient R SERGIO BHAGAT [facility] [id number] [facility] 2020-03-28 00:00:00 2020-03-28 00:00:00 Refill [facility] 1..840.114 350.1.13.10 4.2.7.2.686 [id number] [facility] 2020-03-23 00:00:00 2020-03-23 00:00:00 Telephone David Henry [facility] 1.84.114 350.1.13.10 4.2.7.2.686 [id number] [facility] 2020-03-22 12:22:11 2020-03-22 12:37:11 [employer] Accounts Manager Visit Poarya, Adc Lab Carola Guerrero [facility] 1.2840.114 350.1.13.10 4.2.7.2.686 [id number] [facility] 2020-03-22 12:30:00 2020-03-22 12:30:00 Outpatient CAROLA IVORY [facility] [id number] [facility] 2020-01-31 00:00:00 2020-01-31 00:00:00 Telephone Renata Mancini [facility] Building 1.2840.114 350.1.13.10 4.2.7.2.686 [id number] [facility] 2020-01-03 11:17:26 2020-01-18 22:13:22 Office Visit Tracey Figueroa [facility] Building 1.2840.114 350.1.13.10 4.2.7.2.686 [id number] [facility] 2020-01-03 15:40:00 2020-01-03 15:40:00 Outpatient R TRACEY FIGUEROA [facility] [id number] [facility] 2020-01-03 00:00:00 2020-01-03 00:00:00 Telephone Tracey Figueroa [facility] Building 1.2840.114 350.1.13.10 4.2.7.2.686 [id number] [facility] 2019-12-21 16:05:22 2019-12-21 16:20:22 [employer] Accounts Manager Visit 2, Adc Lab Tracey Figueroa [facility] 1.284.114 350.1.13.10 4.2.7.2.686 [id number] [facility] 2019-12-21 14:08:32 2019-12-21 15:50:05 Office Visit Tracey Figueroa [facility] 1.284.114 350.1.13.10 4.2.7.2.686 [id number] [facility] 2019-12-21 15:00:00 2019-12-21 15:00:00 Outpatient R TRACEY FIGUEROA [facility] [id number] [facility] 2019-12-21 00:00:00 2019-12-21 00:00:00 Orders Only Doctor Unassigned, [place] [facility] 1.2.114 350.1.13.10 4.2.7.2.686 [id number] [facility] 2019-12-18 00:00:00 2019-12-18 00:00:00 Renata Kimbrough [facility] Building 1.2840.114 350.1.13.10 4.2.7.2.686 [id number] [facility] 2019-12-14 00:00:00 2019-12-14 00:00:00 Refill [facility] 1.2.840.114 350.1.13.10 4.2.7.2.686 [id number] [facility] 2019-11-30 00:00:00 2019-11-30 00:00:00 Telephone Chip Melendez [facility] Building 1.2840.114 350.1.13.10 4.2.7.2.686 [id number] [facility] 2019-11-30 00:00:00 2019-11-30 00:00:00 Refill Chip Melendez [facility] Office Building 1.2840.114 350.1.13.10 4.2.7.2.686 [id number] [facility] 2019-11-14 12:46:59 2019-11-14 13:44:17 Office Visit Chip Melendez [facility] Building 1.2840.114 350.1.13.10 4.2.7.2.686 [id number] [facility] 2019-10-31 00:00:00 2019-10-31 00:00:00 Refill Phil Gan [facility] Office Building 1.2840.114 350.1.13.10 4.2.7.2.686 [id number] [facility] 2019-06-28 00:00:00 2019-06-28 00:00:00 Refill Phil Gan [facility] 1.2840.114 350.1.13.10 4.2.7.2.686 [id number] [facility] 2019-06-26 00:00:00 2019-06-26 00:00:00 Refill Renata Mancini [facility] Building 1.2.840.114 350.1.13.10 4.2.7.2.686 [id number] [facility] 2019-06-22 10:07:25 2019-06-22 11:46:48 Office Visit Matt Cordova [facility] AND [facility] 1.2840.114 350.1.13.10 4.2.7.2.686 [id number] [facility] 2019-06-21 00:00:00 2019-06-21 00:00:00 Telephone Matt Cordova [facility] 1.2840.114 350.1.13.10 4.2.7.2.686 [id number] [facility] 2019-05-31 00:00:00 2019-05-31 00:00:00 Telephone Renata Mancini [facility] Building 1.2.840.114 350.1.13.10 4.2.7.2.686 [id number] [facility] 2019-05-16 12:34:40 2019-05-16 23:59:00 Hospital Encounter Renata Mancini [facility] 1.2840.114 350.1.13.10 4.2.7.2.686 [id number] [facility] 2014-08-03 00:00:00 2014-08-03 00:00:00 Orders Only Doctor Unassigned, [place] [facility] 1.2840.114 350.1.13.10 4.2.7.2.686 [id number] [facility] Results Test Description Test Time Test Comments Results Result Comments Source REFERRAL- REQUEST/RESPONS E 15:39:55 Ordered by an unspecified provider. [facility] REFERRAL- REQUEST/RESPONS E 14:49:24 Ordered by an unspecified provider. [facility] MRI LUMBAR, SPINAL CANAL WITHOUT CONTRAST 21:20:00 *.*.*.*.*.*.*.*.*.*.*.*. *.*FINAL*.*.*.*.*.*.*.*. *.*.*.*.*.*.*HISTORY: History of lumbar compression fractures with worsening low back pain. TECHNIQUE: Sagittal T2 FRFSE, T1, STIR and axial T2 FRFSE T1 studies of lumbarspines are obtained. Additional coronal T2 FRFSE study is also obtained. FINDINGS: Comparison has been made with 06/05/2015 study done at [facility].No acute compression fracture or abnormal marrow changes of the bones detected.Spinal canal appears to be of adequate size and normal conus/cauda equina arefound at the level of T12. Visualized retroperitoneum is unremarkable for aorticaneurysm or enlarged lymph nodes or hydronephrosis. T11-T12, T12-L1: Fracture of T11 with loss of 40-50% of its height. Minimal discbulge into the spinal canal at the T11-T12 and T12-L1 without significant thecalsac compression or cord compression.L1-L2: Compression fracture of L1 which has lost to 70% of its height.Degenerative changes are seen in the ventral vertebral margins. Minimalencroachment by upper dorsal vertebral margin of L1 into the spinal canal.L2-L3: Compression fracture of upper L2 with loss of up to 50% of its height.Degenerative changes are seen in the ventral and dorsal vertebral margins withosteophyte/bulging disc complex causing thecal sac compression. Bulging disc ismore prominent into the lateral recesses on both sides with bilateral lateralrecess and foraminal encroachment without significant nerve compression.Bilateral facet arthritis is noted.L3-L4: Compression fracture of L3 with loss of 75% of its height. Encroachmentby posterior inferior margin of L3 into the spinal canal with thecal saccompression. Bilateral facet arthritis is noted.L4-L5:Disc desiccation and facet arthritis. No significant disc bulge into thespinal canal.L5-S1: Fracture of L5. Loss of 80% of its height. Bulging disc and facetarthritis is noted with mild thecal sac compression and foraminal encroachmentwithout significant nerve compression. CONCLUSIONS: 1. Compression fracture of T11, L1, L2, L3 and L5 vertebral bodies. Thefractures appear to be old and is likely secondary to osteoporosis. Noaggressive bone lesions.2. Interval worsening with increased compression fracture deformity of L3,healing of fracture of T11 and L1 since May 2015 study.3. Incidental note of diffuse moderate atrophy of left kidney, essentiallyunchanged since 2014 study. Atrophy could be secondary to renovascularinsufficienc y. Note: Above report is self-edited and computer generated errors may beoverlooked. Therefore, if you notice an error, I request you to bring it to myattention LAM. ?Personally interpreted by: PAULINO PENG MD /Signed/ PAULINO PENG MD [facility] Notes Date/Time Note Provider Source 2024-07-07 13:57:16 Called and spoke to Tammy Last verified . She had a question of how often she will need the pneumonia vaccine and if it was yearly. Informed her that it was not a yearly vaccine and usually pneumonia vaccines are every 5 or more years depending on the provider. She was appreciative and verbalized understanding. Sofi Koch RN [facility] 2024-07-07 09:03:13 Tammy Last is a 69 year old female Pt is calling to speak with a nurse regarding pneumonia vaccine, Please advise (home) Yanelis Sherwood [facility] 2024-07-04 14:13:01 Refilled per SDO guidelines. T [facility] 2024-07-04 13:22:07 Images from the original note were not included. Fax rcvd from [facility]. Rx placed in Dr. Cordova's folder, please sign and date. Renuka Lovell Renuka Lovell [facility] 2024-04-22 16:25:04 Requested Prescriptions Pending Prescriptions Disp Refills FLUTICASONE PROPIONATE 50 mcg/actuation nasal spray [Pharmacy Med Name: FLUTICASONE PROP 50 MCG SPRAY] 3 Sig: USE 2 SPRAYS IN EACH NOSTRIL 2 TIMES DAILY. There is no refill protocol information for this order IVETH 07-15-23 NOV 07-06-24 T [facility] 2024-03-29 09:00:00 Images from the original note were not included. Venipuncture collection performed by clean technique on the left anticubitus. Total of 1 attempts were made. Slight pressure and a bandage/dressing were applied to the site(s). The patient experienced no complications. The following specimens were processed according to instructions and sent to [facility] laboratories per lab order on 03/29/2024 : LT BLUE SST 6 RED 1 LAV 2 PPT DK GREEN (LiHep) DK GREEN (SodH) BALTAZAR DK BLUE (K2) DK BLUE (S) ACD Blood Culture NIPT/NTD Verified [facility] orders with Wendy Jha T [facility] 2023-07-07 09:44:24 Formatting of this n ote might be different from the original. Called patient at this time and informed her that a prescription was sent to her preferred pharmacy. Pt verbalized understanding. T [facility] 2023-07-07 08:51:00 Formatting of this n ote might be different from the original. Tammy Last is a 68 year old female Pt is calling requesting a refill on her prescription of ANORO ELLIPTA 62.5-25 mcg/actuation inhalation disk, for just one month. She states that she has enough up until the day of her appointment and she usually takes it around 8AM but her appointment isn't until 11AM. Please advise. [facility]/pharmacy #[id number]- [address] at [facility] Dacia Diaz [facility] [employer] 2023-05-18 15:54:19 Formatting of this n ote is different from the original. Requested Prescriptions Pending Prescriptions Disp Refills FLUTICASONE PROPIONATE 50 mcg/actuation nasal spray [Pharmacy Med Name: FLUTICASONE PROP 50 MCG SPRAY] 1 Sig: USE 2 SPRAYS IN EACH NOSTRIL 2 TIMES DAILY. There is no refill protocol information for this order IVETH 07-16-22 NOV 07-15-23 [facility] [employer]
--- NOTE | 2024-12-12 16:21 | RAD REPORT ---
EXAMINATION: Ankle Right 3 View CLINICAL INDICATION: Female, 69 years old. ankle injury COMPARISON: No prior exam. FINDINGS: No acute fracture. No malalignment/dislocation. Calcaneal spurring. Other: n/a IMPRESSION: No acute osseous abnormality.
--- NOTE | 2024-12-12 17:25 | ER ---
Nurse's Notes [facility] Name: Floridalma Last Age: 69 yrs Sex: Female : 1955 Arrival Date: 12/12/2024 Time: 15:12 Bed 9 Private MD: Diagnosis: Sprain of ankle Presentation: 12/12 15:58 Chief complaint: Patient states: she injured her right ankle 6 years ago, and yesterday ap3 she twisted the same right ankle when getting up and "heard a crunch". patient currently rates her pain as a 2/10. Coronavirus screen: At this time, the client does not indicate any symptoms associated with coronavirus-19. Ebola Screen: No symptoms or risks identified at this time. Initial Sepsis Screen: Does the patient meet any 2 criteria? No. Patient's initial sepsis screen is negative. Does the patient have a suspected source of infection? No. Patient's initial sepsis screen is negative. Risk Assessment: Do you want to hurt yourself or someone else? Patient reports no desire to harm self or others. Onset of symptoms was December 11, 2024. 15:58 Method Of Arrival: Wheelchair ap3 15:58 Acuity: ESTEFANÍA 4 ap3 Triage Assessment: 16:03 General: Appears in no apparent distress. Behavior is calm, cooperative, appropriate ap3 for age. Pain: Complains of pain in right foot Pain currently is 2 out of 10 on a pain scale. at worst was 10 out of 10 on a pain scale. Neuro: Level of Consciousness is awake, alert, obeys commands, Oriented to person, place, time, situation, Appropriate for age. Cardiovascular: Patient's skin is warm and dry. Respiratory: Airway is patent Respiratory effort is even, unlabored, Respiratory pattern is regular, symmetrical. Musculoskeletal: Reports pain in right foot. Historical: - Allergies: 16:01 No Known Allergies; ap3 - PMHx: 16:01 Osteoporosis; Chronic obstructive lung disease; cva; ap3 - Immunization history:: Client reports receiving the 2nd dose of the Covid vaccine, Flu vaccine is up to date. - Infectious Disease History:: Denies. - Social history:: Smoking status: Patient denies any tobacco usage or history of. Screenin:03 Abuse screen: Denies threats or abuse. Nutritional screening: No deficits noted. ap3 Tuberculosis screening: No symptoms or risk factors identified. 17:50 [facility] ED Fall Risk Assessment (Adult) History of falling in the last 3 months, kc6 including since admission Yes- single mechanical fall (1 pt) Confusion or Disorientation No (0 pts) Intoxicated or Sedated No (0 pts) Impaired Gait Yes (1 pt) Mobility Assist Device Used Yes (1 pt) Altered Elimination No (0 pt) Score/Fall Risk Level 3 or more points = High Risk Oriented to surroundings, Maintained a safe environment, Educated pt \\T\\ family on fall prevention, incl call for assistance when getting out of bed. Assessment: 17:49 General: Appears in no apparent distress. comfortable, slender, well groomed, well kc6 developed, Behavior is calm, cooperative, appropriate for age. Pain: Complains of pain in right foot. Neuro: Level of Consciousness is awake, alert, obeys commands, Oriented to person, place, time, situation, Appropriate for age. Cardiovascular: Capillary refill < 3 seconds. Respiratory: Airway is patent Trachea midline Respiratory effort is even, unlabored, Respiratory pattern is regular, symmetrical. GI: No signs and/or symptoms were reported involving the gastrointestinal system. : No signs and/or symptoms were reported regarding the genitourinary system. EENT: No signs and/or symptoms were reported regarding the EENT system. Derm: Skin is intact, is healthy with good turgor, Skin is normal, Bruising that is dark purple, on dorsum of right foot. Musculoskeletal: Circulation, motion, and sensation intact. Range of motion: intact in all extremities. Vital Signs: 15:58 BP 145 / 88; Pulse 86; Resp 17; Temp 98.1; Pulse Ox 100% ; Weight 42.64 kg; Height 4 ap3 ft. 9 in. ; Pain 2/10; 17:51 BP 136 / 86; Pulse 85; Resp 15 S; Pulse Ox 99% on R/A; kc6 15:58 Body Mass Index 20.34 (42.64 kg, 144.78 cm) ap3 15:58 Pain Scale: Adult ap3 ED Course: 15:17 Patient arrived in ED. as 15:24 Denis Phillip MD is Attending Physician. ec2 15:49 Ankle Right 3 View XRAY In Process Unspecified. EDMS 16:01 Triage completed. ap3 16:04 Arm band placed on left wrist. ap3 17:25 Sergio Norman MD is Referral Physician. ec2 17:49 Joan Pal, RN is Primary Nurse. kc6 17:50 Patient has correct armband on for positive identification. Bed in low position. Call kc6 light in reach. Side rails up X 1. Adult w/ patient. Pulse ox on. NIBP on. Door closed. Noise minimized. Lights dimmed. Pillow given. Verbal reassurance given. 17:50 No provider procedures requiring assistance completed. Patient did not have IV access kc6 during this emergency room visit. Patient maintains SpO2 saturation greater than 95% on room air. 17:51 Roly wrap to right ankle. kc6 Administered Medications: 17:49 Drug: Methocarbamol PO 500 mg PO once Route: PO; kc6 Medication: 17:51 VIS not applicable for this client. kc6 Outcome: 17:25 Discharge ordered by . ec2 17:51 Discharged to home via wheelchair, with significant other, kc6 17:51 Condition: good 17:51 Discharge instructions given to patient, significant other, Instructed on discharge instructions, follow up and referral plans. Demonstrated understanding of instructions, follow-up care, 17:51 Patient left the ED. kc6 Signatures: Dispatcher [employer] Haydee Hogue Amanda, RN RN ap3 Joan Pal, DOYLE RN kc6 Denis Phillip MD MD ec2
--- NOTE | 2024-12-12 17:25 | EDPHYS ---
Physician Documentation [facility] Name: Floridalma Last Age: 69 yrs Sex: Female : 1955 Arrival Date: 12/12/2024 Time: 15:12 Bed 9 Private MD: ED Physician Denis Phillip HPI: 12/12 18:15 This 69 yrs old Female presents to ER via Wheelchair with complaints of Ankle ec2 Injury, Right. 18:15 Patient arrives today for evaluation of a right ankle sprain. Reports that she twisted ec2 her right ankle and heard a crunch. Denies any other falls injuries or trauma. Complains of pain with weightbearing.. Historical: - Allergies: 16:01 No Known Allergies; ap3 - PMHx: 16:01 Osteoporosis; Chronic obstructive lung disease; cva; ap3 - Immunization history:: Client reports receiving the 2nd dose of the Covid vaccine, Flu vaccine is up to date. - Infectious Disease History:: Denies. - Social history:: Smoking status: Patient denies any tobacco usage or history of. ROS: 18:16 Constitutional: as per hpi ec2 Exam: 18:16 Constitutional: GEN: NAD Head: atraumatic Eyes: EOMI Ears: External ears are ec2 normal. CV: regular rate LUNGS: no respiratory distress ABD: non-distended SKIN: no evidence of rashes MSK: Right ankle TTP to the lateral malleolus and some trace effusion appreciated. Vital Signs: 15:58 BP 145 / 88; Pulse 86; Resp 17; Temp 98.1; Pulse Ox 100% ; Weight 42.64 kg; Height 4 ap3 ft. 9 in. ; Pain 2/10; 17:51 BP 136 / 86; Pulse 85; Resp 15 S; Pulse Ox 99% on R/A; kc6 15:58 Body Mass Index 20.34 (42.64 kg, 144.78 cm) ap3 15:58 Pain Scale: Adult ap3 MDM: 16:01 Medical Screening Exam initiated ec2 18:16 Data reviewed: vital signs, nurses notes. ED course: Patient arrives today for right ec2 ankle injury. Examination yields MSK findings above. Radiograph negative for bony fracture. Presentation suspect ankle sprain. Will discharge home. Return precautions given.. 12/12 15:24 Order name: Ankle Right 3 View XRAY; Complete Time: 17:25 ec2 12/12 17:25 Order name: Roly Wrap; Complete Time: 17:41 ec2 Administered Medications: 17:49 Drug: Methocarbamol PO 500 mg PO once Route: PO; kc6 Disposition Summary: 12/12/24 17:25 Discharge Ordered Notes: Location: Home ec2 Condition: Stable ec2 Diagnosis - Sprain of ankle ec2 Followup: ec2 - With: Sergio Norman MD - When: - Reason: Recheck today's complaints Discharge Instructions: - Discharge Summary Sheet ec2 - Ankle Sprain, [id number] ec2 Forms: - Medication Reconciliation Form ec2 - Antibiotic Education ec2 - Prescription Opioid Use ec2 - Patient Portal Instructions ec2 - Leadership Thank You Letter ec2 Signatures: Dispatcher [employer] Fatoumata Germain RN RN ap3 Joan Pal RN RN kc6 Denis Phillip MD MD ec2
[2024-12-12] MEDS ORDERED: methocarbamoL 500 MG TAB ONE (17:43)
[2024-12-12 17:56] VITALS: TEMP 98.1
[2024-12-12 17:57] VITALS: BP 136/86; O2SAT 99
== END 2024-12-12 17:51 | disposition home or self-care (01) ==
LOC: ER 15:12
DX: S93.401A Sprain of unspecified ligament of right ankle, initial encounter (principal)
CPT/HCPCS: 99284